=== PATIENT | female | born 1955 | race Caucasian/White ===

== ENCOUNTER 2018-08-10 02:29 | Outpatient (CLI) | payer OTHER, SELFPAY ==
[2018-08-10 07:50] LABS: Hemoglobin A1C 6.1 % (4.5-6.2)
[2018-08-10 08:31] LABS: ALT 26 U/L (12-78); AST 21 U/L (15-37); Albumin 4.1 g/dL (3.4-5.0); Alkaline Phosphatase 61 U/L (46-116); Anion Gap 8.2 mmol/L (3-11); BUN 13 mg/dL (7-18); Bilirubin, Total 0.7 mg/dL (0.2-1.0); CO2 29.8 mmol/L (21.0-32.0); CREATININE 0.81 mg/dL (0.55-1.02); Calcium 10.4 mg/dL (8.5-10.1); Chloride 102 mmol/L (98-107); Cholesterol 197 mg/dL (50-200); Glucose 101 mg/dL (70-100); HDL Cholesterol 62 mg/dL (40-60); LDL CHOLESTEROL 119 mg/dL (<100); Potassium 4.4 mmol/L (3.5-5.1); Sodium 140 mmol/L (136-145); Total Protein 7.5 g/dL (6.4-8.2); Triglyceride 93 mg/dL (30-150)
[2018-08-10 08:35] LABS: COMMENT (LAB VIEW ONLY) 118.44 mg/dL; Microalb ug/mg Crea 4.9 ug/mg Cr
== END 2018-08-10 02:49 ==
PROVIDERS: PCP Family Medicine; Visit Provider Family Medicine
DX: Z00.00 Encounter for general adult medical examination without abnormal findings (principal); E11.9 Type 2 diabetes mellitus without complications
CPT/HCPCS: 36415; 80053; 80061; 83721; 82043; 82570; 83036

== ENCOUNTER 2018-08-21 01:33 | Outpatient (CLI) | payer OTHER, SELFPAY ==
--- NOTE | 2018-08-21 13:00 | DI.MAMMO_ITS ---
SYMPTOMS/DIAGNOSIS: SCREENING, Z12.31 MAMMOGRAM: Mammograms were interpreted according to the usual protocol including computer analysis with CAD system, tomosynthesis and C view imaging. The breasts are of moderate density with fairly symmetrical distribution of fibroglandular tissue. No dominant mass or clumped microcalcification is identified in either breast. Current examination is compared with the previous examinations including July 2017 and there has been no gross interval change in appearance in comparison with the previous studies. CONCLUSION: No specific evidence of malignancy at this time. Routine screening examinations are suggested at yearly intervals in this age group according to the ACS/ACR guidelines. Category 1, breast density category B. MQSA ASSESSMENT OF FINDINGS: Negative. Category 1. Patient will receive a letter notifying them of these results. BI-RADS category B. There are scattered areas of fibroglandular density.
== END 2018-08-21 01:53 ==
PROVIDERS: PCP Family Medicine; Visit Provider Family Medicine
DX: Z12.31 Encounter for screening mammogram for malignant neoplasm of breast (principal)
CPT/HCPCS: 77063; 77067

== ENCOUNTER 2019-02-15 02:40 | Outpatient (CLI) | payer OTHER, SELFPAY ==
[2019-02-15 10:58] LABS: Hemoglobin A1C 6.3 % (4.5-6.2)
== END 2019-02-15 03:00 ==
PROVIDERS: PCP Family Medicine; Visit Provider Family Medicine
DX: E11.9 Type 2 diabetes mellitus without complications (principal)
CPT/HCPCS: 36415; 83036

== ENCOUNTER 2019-08-16 01:53 | Outpatient (CLI) | payer OTHER, SELFPAY ==
[2019-08-16 11:35] LABS: Hemoglobin A1C 6.3 % (4.5-6.2)
[2019-08-16 11:56] LABS: COMMENT (LAB VIEW ONLY) 230.66 mg/dL; Microalb ug/mg Crea 7.9 ug/mg Cr
[2019-08-16 12:57] LABS: ALT 20 U/L (14-59); AST 18 U/L (15-37); Albumin 3.9 g/dL (3.4-5.0); Alkaline Phosphatase 61 U/L (46-116); Anion Gap 10.2 mmol/L (3-11); BUN 12 mg/dL (7-18); Bilirubin, Total 0.9 mg/dL (0.2-1.0); CO2 26.8 mmol/L (21.0-32.0); CREATININE 0.87 mg/dL (0.55-1.02); Calcium 9.6 mg/dL (8.5-10.1); Calculated LDL 118 mg/dL; Chloride 105 mmol/L (98-107); Cholesterol 188 mg/dL (50-200); Glucose 101 mg/dL (70-100); HDL Cholesterol 53 mg/dL (40-60); Potassium 4.3 mmol/L (3.5-5.1); Sodium 142 mmol/L (136-145); Total Protein 7.2 g/dL (6.4-8.2); Triglyceride 88 mg/dL (30-150)
== END 2019-08-16 02:13 ==
PROVIDERS: PCP Family Medicine; Visit Provider Family Medicine
DX: E11.9 Type 2 diabetes mellitus without complications (principal); I10 Essential (primary) hypertension; E78.5 Hyperlipidemia, unspecified
CPT/HCPCS: 36415; 80053; 80061; 82043; 82570; 83036

== ENCOUNTER 2019-11-26 02:01 | Outpatient (CLI) | payer OTHER, SELFPAY ==
--- NOTE | 2019-11-26 12:38 | DI.MAMMO_ITS ---
EXAM: MG MAMMO SCREENING CLINICAL HISTORY: SCREENING TECHNIQUE: Mammograms were interpreted according to the usual protocol including computer analysis w [employer] CAD system, tomosynthesis and C-view imaging. COMPARISON: Current examination is compared with previous examinations including August 2018 FINDINGS: The breasts are of moderate density with fairly symmetrical distribution of fibroglandular tissue. N o dominant mass or clumped microcalcification is identified in either breast. Current examination is compared with previous examinations including August 2018 and there has been no gross interval sam nge in appearance in comparison with the previous studies. IMPRESSION: No specific evidence of malignancy at this time. Routine screening examinations are suggested at yea rly intervals in this age group according to the ACS/ACR guidelines. Category 1, breast density claudio Talavera. BI-RADS Cat 1 - Negative Breast Density - Category B - Scattered areas of fibroglandular density
== END 2019-11-26 02:21 ==
PROVIDERS: PCP Family Medicine; Visit Provider Obstetrics & Gynecology Gynecology
DX: Z12.31 Encounter for screening mammogram for malignant neoplasm of breast (principal)
CPT/HCPCS: 77063; 77067

== ENCOUNTER 2020-02-26 03:04 | Outpatient (CLI) | payer MEDICARE, SELFPAY | END 2020-02-26 03:24 | PROVIDERS: PCP Family Medicine; Visit Provider Family Medicine | DX: E11.9 Type 2 diabetes mellitus without complications (principal) | CPT/HCPCS: 36415; 83036 ==

== ENCOUNTER → 2020-08-14 08:32 | Outpatient (BNVA) | payer MEDICARE, OTHER, SELFPAY | PROVIDERS: PCP Family Medicine; Referring Provider Family Medicine; Visit Provider Surgery | DX: Z12.11 Encounter for screening for malignant neoplasm of colon (principal); Z12.12 Encounter for screening for malignant neoplasm of rectum; Z11.59 Encounter for screening for other viral diseases ==

== ENCOUNTER 2020-08-19 04:23 | Outpatient (CLI) | payer MEDICARE, SELFPAY ==
[2020-08-19 13:20] LABS: ALT 21 U/L (14-59); AST 17 U/L (15-37); Albumin 4.1 g/dL (3.4-5.0); Alkaline Phosphatase 58 U/L (46-116); Anion Gap 8.5 mmol/L (3-11); BUN 9 mg/dL (7-18); Bilirubin, Total 0.8 mg/dL (0.2-1.0); CO2 28.5 mmol/L (21.0-32.0); CREATININE 0.85 mg/dL (0.55-1.02); Calcium 10.2 mg/dL (8.5-10.1); Chloride 105 mmol/L (98-107); Glucose 98 mg/dL (74-106); Potassium 4.4 mmol/L (3.5-5.1); Sodium 142 mmol/L (136-145); Total Protein 7.3 g/dL (6.4-8.2)
[2020-08-19 13:34] LABS: Hemoglobin A1C 6.1 % (<5.7)
[2020-08-19 13:52] LABS: COMMENT (LAB VIEW ONLY) 196.78 mg/dL; Microalb ug/mg Crea 5.9 ug/mg Cr
== END 2020-08-19 04:43 ==
PROVIDERS: PCP Family Medicine; Visit Provider Family Medicine
DX: E11.9 Type 2 diabetes mellitus without complications (principal); E78.5 Hyperlipidemia, unspecified
CPT/HCPCS: 36415; 80053; 82043; 82570; 83036

== ENCOUNTER 2020-08-26 02:04 | Outpatient (CLI) | payer MEDICARE, SELFPAY ==
[2020-08-27 15:13] LABS: SARS-CoV-2 RNA Not Detected (NotDetected); SARS-CoV-2 RNA Source Nasal/Nares
== END 2020-08-26 02:24 ==
PROVIDERS: PCP Family Medicine; Visit Provider Surgery
DX: Z11.59 Encounter for screening for other viral diseases (principal); Z01.818 Encounter for other preprocedural examination
CPT/HCPCS: U0003

== ENCOUNTER 2020-08-31 06:13 | Day surgery (SDC) | payer MEDICARE, SELFPAY ==
[2020-08-31 06:15] VITALS: BP 114/80; PULSE 75; RESP 18; TEMP 36.4; O2SAT 94
[2020-08-31] MEDS: Lactated Ringers 1,000 ML 80 ML IV (06:35)
--- NOTE | 2020-08-31 06:46 | W.COLOREPORT ---
Date of service: 08/31/20 Time of Service: 07:30 Colonoscopy Report Date of procedure: 08/31/20 Pre-op diagnosis general: Colon Cancer Screening and history of polyps Post-op diagnosis procedure note: other (multiple small pollyps) Procedure: Colonoscopy with polypectomy Surgeon: Radha Armas Anesthesia proc note operative: other (General/ ASA 2/Juan Jackson, AMY) Estimated blood loss (mL): 5 Pathology: other (cecal polyp, sigmoid polyps x5, rectal polyps x6) Complications: None Disposition: no change Indications: Darby is here to discuss a screening colonoscopy. She has had no changes in bowel habits, melena, hematochezia, abdominal pain or unintentional weight loss. Colonoscopy procedure and complications reviewed. COVID testing explained as well as reasoning. Reviewed quarantine requirements after testing Prep: Miralax/Dulcolax Procedure Start Time: 07:30 Procedure End Time: 08:15 Retraction Time: 27 minutes Findings: multiple small sessile polyps Procedure Description: After informed consent was obtained the patient was taken to the procedure room and placed in a left decubitous position. Monitors were applied and a time out was done. The patients name, date of , procedure, allergies to medications and metal in their body was reviewed. The patient was then sedated. Once sedated and comfortable a rectal exam was done. External exam was normal. Internal exam revealed a normal sphincter tone and no palpable masses. The scope was then introduced and retro-flexed. No internal hemorrhoids were identified. The scope was then advanced to the cecum without difficulty. The ileocecal valve and appendiceal orifice were identified. The prep was good. The scope was then slowly retracted over 27 minutes back into the rectum. Polyps were removed with cold forceps in the cecum x1, sigmoid colon x5 and rectum x6. There were no diverticula noted. The scope was removed and the patient was woken up and taken back to Same day surgery in stable condition. The patient tolerated the procedure well and there were no immediate complications. Follow up: The patient should follow up in 3-5 years unless they develop changes in bowel habits or other new gastrointestinal complaints.
--- NOTE | 2020-08-31 06:47 | W.PM.DSUDISC ---
Discharge Plan Disposition Patient Disposition: HOME Condition: Good Discharge Details Reason For Visit: colon cancer screening Attending Provider: Radha Armas Primary Care Provider: Milly Carvajal Home Meds and New Rx's Prescriptions: Continued simvastatin [Zocor] 20 mg tablet See Rx Instructions PO HS Qty: 45 RF: 4 aspirin [Aspirin Low-Strength] 81 MG tablet,chewable 1 tab.chew PO DAILY RF: 0 cholecalciferol (vitamin D3) 1,000 UNIT tablet 2 tab PO THREE TIMES A WEEK RF: 0 omega-3 fatty acids-fish oil 1 EACH capsule 1 cap PO DAILY RF: 0 calcium carbonate-vitamin D3 [Caltrate with Vitamin D3] 1 EACH tablet 1 tab PO DAILY RF: 0 acetaminophen [Tylenol Extra Strength] 500 MG tablet 1,000 mg PO BID PRNRF: 0 ibuprofen 200 MG tablet 3 - 4 tab PO Q6H PRN RF: 0 Discharge Instructions Instructions: Colorectal Polyps (DC) Additional Instructions: Findings: small polyps x13 Follow up: ? 3 -5 years Please call if you develop: fevers >101.5 Nausea or Vomiting Abdominal pain that is not transient DAY SURGERY UNIT POST ENDOSCOPY INSTRUCTIONS 1. Because there will be medication in your system for the next 24 hours, you may feel a little sleepy. Your coordination will be affected. Therefore: a. Do not drive or operate dangerous equipment for 24 hours. b. Do not drink alcohol beverages for 24 hours (not even beer). c. Plan to go home and rest for the day. 2. Generally there are no restrictions on your activity after a day or so has gone by, but you may feel a bit fatigued for a few days. 3 After you arrive home you may have a light meal and return to a normal diet as you can tolerate it without feeling sick to your stomach. 4. After surgery, you may feel pain or discomfort. This should be only transient, but if it persists please contact your doctor. 5. If there are any questions regarding the findings of your procedure, please feel free to contact your doctor. 6. If you are unable to contact your doctor with a problem, contact the hospital at [phone]. 7. Continue all your regular medications unless directed otherwise. I understand the above instructions and have no questions. Signature of Patient or Responsible Adult Escort Date/Time Name of Responsible Adult Escort Signature of Nurse Date/Time Activity:: Activity as Tolerated Diet:: As Tolerated Discharge Orders Discharge Orders: Discharge Order (Routine); Ordered 08/31/20 Ordered By: Radha Armas
--- NOTE | 2020-08-31 07:33 | BOWEL_PTH ---
PATIENT: Janeen Dias LOC: [facility] U#:[id number] AGE/SX: 65/F ROOM: RE08/31/[address]: Radha Armas MD : 1955 BED: DIS: 08/31/2020 SPEC #: [id number] RECD: 08/31/20 12:35 STATUS: KARELY RE #: [id number] GIO: 08/31/20 07:[address]: Radha Armas DEPT: Surgical Specimen RECD BY: Carly Hughes ENTERED: 08/31/20 12:37 SP TYPE: Bowel OTHR DR: Milly Carvajal MD, DC Tissues: 1 - BIOPSY BOWEL 2 - BIOPSY BOWEL 3 - BIOPSY BOWEL 4 - BIOPSY BOWEL Procedures: GROSS AND MICRO LEVEL 4 Comments: [id number]
[2020-08-31 08:50] VITALS: BP 117/54; PULSE 55; RESP 18; TEMP 36.4; O2SAT 97
== END 2020-08-31 09:07 | disposition home or self-care (01) ==
PROVIDERS: PCP Family Medicine; Visit Provider Surgery
PROC: 0DJD8ZZ Inspection of Lower Intestinal Tract, Via Natural or Artificial Opening Endoscopic (ICD-10-PCS; CPT 45378; principal; 2020-08-31 07:30)
DX: Z12.11 Encounter for screening for malignant neoplasm of colon (principal); K62.1 Rectal polyp; Z86.010 Personal history of colon polyps; I10 Essential (primary) hypertension; E11.9 Type 2 diabetes mellitus without complications; E66.9 Obesity, unspecified; D12.0 Benign neoplasm of cecum
CPT/HCPCS: 45380; 88305; J2001

== ENCOUNTER 2020-12-22 10:46 | Outpatient (REF) | payer MEDICARE, SELFPAY ==
--- NOTE | 2020-12-22 10:30 | PAPFT_PTH ---
PATIENT: Janeen Dias LOC: [facility] U#:[id number] AGE/SX: 65/F ROOM: RE12/22/[address]: Maggy Dixon : 1955 BED: DIS: 12/22/2020 SPEC #: [id number] RECD: 12/22/20 12:24 STATUS: KARELY REMeño #: [id number] GIO: 12/22/20 10:[address]: Maggy Dixon DEPT: [facility] Cytology RECD BY: Carly Hughes ENTERED: 12/22/20 12:25 SP TYPE: PAPFT OTHR DR: Milly Carvajal MD, DC Tissues: 1 - CX/ENDOCX FOR PAP SMEARS Procedures: PAP THIN PREP/UVM Screening HPV DNA PROBE Comments: [id number]
== END 2020-12-22 10:47 | disposition home or self-care (01) ==
LOC: LBN 10:46
PROVIDERS: PCP Family Medicine; Visit Provider Obstetrics & Gynecology Gynecology
DX: Z12.4 Encounter for screening for malignant neoplasm of cervix (principal); Z11.51 Encounter for screening for human papillomavirus (HPV)
CPT/HCPCS: 88142; 87624

== ENCOUNTER 2021-02-15 02:26 | Outpatient (CLI) | payer MEDICARE, SELFPAY ==
--- NOTE | 2021-02-15 07:30 | DI.MAMMO_ITS ---
Exam(s) MAMMO SCREENING EXAM: MAMMO SCREENING CLINICAL HISTORY: screening,Z12.39. TECHNIQUE: Bilateral full field digital CC and MLO mammographic images were obtained with 3D tomosyn thesis and utilizing computer aided detection (CAD). COMPARISON: Prior mammograms dating back to 2011, the most recent being November 2019. FINDINGS: Small microcalcification group lateral of center in the left breast located 8 cm in from the nipple i s unchanged from prior studies. There are no new spiculated masses nor new malignant appearing microcalcification groups. There is no significant architectural distortion nor skin thickening-retraction. IMPRESSION: No radiographic evidence of malignancy. Stable benign findings. BI-RADS Category 2 - Benign Findings Breast Density - Category B - Scattered areas of fibroglandular density Breast density Category C or D implies that the patient has dense breast tissue. Dense breast tissue can make it harder to find cancer on a mammogram. Dense breast tissue is also associated with an incr eased risk of breast cancer. This information about the result of the mammogram report was provided to the patient to raise their awareness. Use this report when you speak with the patient about their risks for breast cancer, which includes their family history. At that time, you may recommend additional screening tests (Ultrasoun d or MRI) as these tests may add significant information. A negative radiographic report should not delay biopsy if a dominant or clinically suspicious mass is present. Up to ten percent of cancers are not identified on mammography. A negative report may reinforce clinical impression. Adenosis and dense breasts may obscure an underlying neoplasm. False positive reports average 6 to 10%. Patient will receive a letter notifying them of these results.
== END 2021-02-15 02:46 ==
PROVIDERS: PCP Family Medicine; Visit Provider Obstetrics & Gynecology Gynecology
DX: Z12.31 Encounter for screening mammogram for malignant neoplasm of breast (principal)
CPT/HCPCS: 77063; 77067

== ENCOUNTER 2021-02-19 01:19 | Outpatient (CLI) | payer MEDICARE, SELFPAY ==
[2021-02-19 12:39] LABS: Hemoglobin A1C 6.1 % (<5.7)
[2021-02-19 13:03] LABS: ALT 27 U/L (14-59); AST 18 U/L (15-37); Albumin 4.4 g/dL (3.4-5.0); Alkaline Phosphatase 67 U/L (46-116); BUN 14 mg/dL (7-18); Bilirubin, Total 0.8 mg/dL (0.2-1.0); CREATININE 0.9 mg/dL (0.55-1.02); Calcium 9.9 mg/dL (8.5-10.1); Calculated LDL 104 mg/dL (<100); Chloride 104 mmol/L (98-107); Cholesterol 187 mg/dL (<200); Glucose 124 mg/dL (74-106); HDL Cholesterol 67 mg/dL (40-60); Potassium 4.3 mmol/L (3.5-5.1); Sodium 142 mmol/L (136-145); Total Protein 7.9 g/dL (6.4-8.2); Triglyceride 82 mg/dL (<150)
[2021-02-19 13:37] LABS: Microalb ug/mg Crea 7.4 ug/mg Cr
== END 2021-02-19 01:20 | disposition home or self-care (01) ==
LOC: LOS 01:19
PROVIDERS: PCP Family Medicine; Visit Provider Family Medicine
DX: E11.9 Type 2 diabetes mellitus without complications (principal); E78.5 Hyperlipidemia, unspecified
CPT/HCPCS: 36415; 80053; 80061; 82043; 82570; 83036

== ENCOUNTER 2021-09-23 03:15 | Outpatient (CLI) | payer MEDICARE, SELFPAY ==
[2021-09-23 09:46] LABS: Hemoglobin A1C 6.2 % (<5.7)
[2021-09-23 09:53] LABS: ALT 30 U/L (14-59); AST 19 U/L (15-37); Alkaline Phosphatase 59 U/L (46-116); Anion Gap 7.9 mmol/L (3-11); BUN 11 mg/dL (7-18); Bilirubin, Total 0.7 mg/dL (0.2-1.0); CO2 29.1 mmol/L (21.0-32.0); CREATININE 0.7 mg/dL (0.55-1.02); Calcium 9.6 mg/dL (8.5-10.1); Chloride 106 mmol/L (98-107); Glucose 103 mg/dL (74-106); Potassium 4.5 mmol/L (3.5-5.1); Sodium 143 mmol/L (136-145); Total Protein 7.2 g/dL (6.4-8.2)
== END 2021-09-23 03:16 | disposition home or self-care (01) ==
LOC: LBO 03:15
PROVIDERS: PCP Family Medicine; Visit Provider Family Medicine
DX: I10 Essential (primary) hypertension (principal); E11.9 Type 2 diabetes mellitus without complications; E78.5 Hyperlipidemia, unspecified
CPT/HCPCS: 36415; 80053; 83036

== ENCOUNTER 2021-10-22 01:12 | Outpatient (CLI) | payer MEDICARE, SELFPAY ==
--- NOTE | 2021-10-22 08:00 | DI.DEXA_ITS ---
Exam(s) XR DEXA BONE DENSITY W/WO SU EXAM: XR DEXA BONE DENSITY W/WO SU CLINICAL HISTORY: osteoporosis,M81.0 TECHNIQUE: Wantr C densitometer COMPARISON: 2002and 2007 FINDINGS: Lateral view of the thoracic and lumbar spine shows no evidence of compression fractures. Bone mineral density measurements of the lumbar spine correspond to a total T-score of -0.9, in the normal range. This represents an 8.4 percent decrease from 2007 and 10.9 percent decrease compared t o 2002. Bone mineral density measurements of the left hip correspond to a total T-score of -0.3. The femora l neck T-score is -0.8, in the normal range. This represents a 6.7 percent decrease from 2007 and a 6.5 percent decrease from 2002. . The left forearm bone mineral density measurements correspond to a T-score of the distal 3rd of -1.9, in the osteopenic range. The forearm was not analyzed on the previous exams. . IMPRESSION: Osteopenia of the left forearm. Normal bone mineral density of left hip and lumbar spine.
== END 2021-10-22 01:32 ==
PROVIDERS: PCP Family Medicine; Visit Provider Family Medicine
DX: M81.0 Age-related osteoporosis without current pathological fracture (principal); M85.88 Other specified disorders of bone density and structure, other site
CPT/HCPCS: 77080

== ENCOUNTER 2022-03-25 01:12 | Outpatient (CLI) | payer MEDICARE, SELFPAY ==
--- OUTSIDE RECORDS SUMMARY | 2022-03-25 01:15 | XMS_ITS | Encounter Summary ---
:[address] [facility] Address [address] [place] [address] Care Team Providers Name Role Phone Milly Carvajal MD Primary Care Provider Encounter Details Date Type Department Care Team Description 01/22/2018 Hospital Encounter [facility] Unknown, Provider, [facility] [address] [facility] [phone] [place] [address] (Work) [phone] Social History Tobacco Use Types Packs/Day Years Used Date Never Assessed Sex Assigned at Date Recorded Not on file documented as of this encounter Discharge Disposition Disposition Code Departure Means Destination Home or Self Senior Living documented in this encounter Plan of Treatment Not on filedocumented as of this encounter Visit Diagnoses Not on filedocumented in this encounter 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
--- OUTSIDE RECORDS SUMMARY | 2022-03-25 01:15 | XMS_ITS | Encounter Summary ---
:1955 Author Organization [facility] Address [address] [place] [address] Care Team Providers Name Role Phone Milly Carvajal MD Primary Care Provider Encounter Details Date Type Department Care Team Description 08/31/2020 Lab Requisition [facility] Molly Armas for other Pathology & MD Alexander general examination Laboratory Medicine [address] [place], [place] [address] [facility] [id number] [place] [id number] Social History Tobacco Use Types Packs/Day Years Used Date Never Assessed Sex Assigned at Date Recorded Not on file documented as of this encounter Plan of Treatment Not on filedocumented as of this encounter Procedures Procedure Name Priority Date/Time Associated Diagnosis Comme nts SURGICAL PATHOLOGY Today 08/31/2020 7:33 EST Encounter for o ther Results for this general examination procedur e are in the results section. documented in this encounter Results SURGICAL PATHOLOGY (08/31/2020 7:33 EST) Final Diagnosis A. COLON, SIGMOID, POLYPS, BIOPSY: [facility] - Hyperplastic polyps. [facility] B. COLON, CECUM, POLYP, BIOPSY: SERVICES - Tubular adenoma. C. RECTUM, POLYPS BIOPSY: - Hyperplastic polyps. D. RECTUM, POLYP, BIOPSY: - Hyperplastic polyp. Attestation There was significant [facility] Electr onically resident/fellow CENTER signed by Ab papo Evangelista involvement in the LABORATORY Archie Vargas on diagnostic evaluation SERVICES 020 at 1225 of this case. By the signature below, the attending physician certifies that they have personally conducted a gross and/or microscopic examination of the described specimens and rendered or confirmed the above diagnosis. Clinical History Colorectal screening [facility] Gross Description A. [facility] MEDICAL Received in formalin narcisa d with proper patient identification (initials S, A) and sigmoid polyps x5 are 5 fragments of price soft tissue (ranging from 0.2 cm to 0.6 cm in greatest dimension). The specimen is entirely submitted in A1-A2. [facility] B. SERVICES Received in formalin narcisa d with proper patient identification (initials S, A) and cecal polyp are 2 fragments of price soft tissue (0.2 x 0.2 x 0.2 cm and 0.4 x 0.4 x 0.2 cm). The specimen is entirely submitted in B1. C. Received in formalin narcisa d with proper patient identification (initials S, A) and rectal polyps x6 are 3 fragments of pink-price soft tissue (ranging from 0.2 cm to 0.4 cm in greatest dimension). The specimen is entirely submitted in C1. D. Received in formalin narcisa d with proper patient identification (initials S, A) and rectal polyp are 2 fragments of pink-price soft tissue (each averaging 0.2 x 0.2 x 0.2 cm). The specimen is entirely submitted in D1. BIANCA LEMUS([facility]) 08/31/2020 17:03 Resident/Fellow: Anthony Chiu MD [facility] Performing Lab [facility] Scanned Images [facility] Specimen Tissue - Specimen from rectum (specimen) Tissue specimen (specimen) - Cecum struc ture (body structure) Tissue specimen (specimen) - Specimen fr om rectum (specimen) Tissue specimen (specimen) - Specimen fr om rectum (specimen) Performing Organization Address City/State/ZIP Code Phon e Number [facility] [address] [place] [address] SERVICES documented in this encounter Visit Diagnoses Diagnosis Encounter for other general examination documented in this encounter Care Teams Computer Field Technician Relationship Specialty Start Date End Date Milly Carvajal MD PCP - General 06/26/15 [address] [place], [place] [phone] documented as of this encounter
--- OUTSIDE RECORDS SUMMARY | 2022-03-25 01:15 | XMS_ITS | Encounter Summary ---
:1955 Author Organization [facility] Address [address] [place] [address] Care Team Providers Name Role Phone Unavailable Primary Care Provider Unavailable Encounter Details Date Type Department Care Team Description 06/13/2008 Before PRISM Converted [facility] - Danisha Samuels, Visit (Milana) Milana max MD [address] [place] [address] Social History Tobacco Use Types Packs/Day Years Used Date Never Assessed Sex Assigned at Date Recorded Not on file documented as of this encounter Plan of Treatment Not on filedocumented as of this encounter Procedures Procedure Name Priority Date/Time Associated Diagnosis Comme nts CYTOPATHOLOGY Routine 06/13/2008 0:00 EDT Results for this procedure are i n the results section . documented in this encounter Results CYTOPATHOLOGY (06/13/2008 0:00 EDT) Pathology Report: CYTOPATHOLOGY REPORT ? [facility] ? LAB Reports generated via electr [employer] Social interface contain original data; ? however they are lacking the format of the original report. ? Caution should be taken when reading/interpreting unformatted reports. ? Name: ? JANEEN DIAS ? Accession #: ? [id number] ? : ? 1955 (Age: 53) ??F ?Collect Date: ? 06/13/2008 ? Location: ? [facility] ? Receive Date: ? 06/16/2008 ? Provider: ?JENNYFER BELL IER MD ? Copy to: ? Specimen/Source: ? ThinPrep Pap Test, Cervix/Endocervix, processed on [employer] ThinPrep Imaging System, wit h manual evaluation ? Last Menstrual Period: ? 12/01 ? Other: ? Additional clinical informat ion: Nl exam ? SPECIMEN ADEQUACY ? Satisfactory for Eval uation ? - transformation zone compon ent present ? GENERAL CATEGORIZATION ? Negative for Intraepi thelial Lesion or Malignancy ? Document reviewed and electr onically signed by: ? Starr [place](ASCP) ? Report Date: ??09/17/ 2008 13:48 ? End of Report ? Specimen Performing Organization Address City/State/[facility] Code Phon e Number [facility] [address] [place] [address] SERVICES [facility] [address] [place] [address] documented in this encounter Visit Diagnoses Not on filedocumented in this encounter
--- OUTSIDE RECORDS SUMMARY | 2022-03-25 01:15 | XMS_ITS | Encounter Summary ---
:1955 Author Organization [facility] Address [address] [place] [address] Care Team Providers Name Role Phone Unavailable Primary Care Provider Unavailable Encounter Details Date Type Department Care Team Description 06/23/2015 Results Only [facility] Nancy Wallace, [address] [place], [place] [phone] (Wo rk) Social History Tobacco Use Types Packs/Day Years Used Date Never Assessed Sex Assigned at Date Recorded Not on file documented as of this encounter Plan of Treatment Not on filedocumented as of this encounter Procedures Procedure Name Priority Date/Time Associated Diagnosis Comme [facility] SURGICAL PATHOLOGY Routine 06/23/2015 10:04 Resul ts for this EDT procedure are i n the results section. documented in this encounter Results SURGICAL PATHOLOGY (06/23/2015 10:04 EDT) Pathology Report: SURGICAL PATHOLOGY REPORT [facility] Reports generated via electronic interface contain franki ginal data; LABORATORY however they are lacking the format of the original re port. SERVICES Caution should be taken when reading/interpreting unfo rmatted reports. Name: ? JANEEN DIAS ? Accession #: ? [id number] ? : ? 1955 (Age: 6 0) ??F ? Collect Date: ? 06/23/2015 ? Location: ? [facility] ? Receive Date: ? 06/24/20 15 ? Provider: NANCY WALLACE MD Copy to: ANIYAH CHACON MD ? Final Pathologic Diagnosis: COLON, SIGMOID, POLYPS, BIOPSY: - ??Colonic mucosa (2) with prominent lymphoid aggregate and surface epithelial hyperplastic change. - ??No adenoma. Document reviewed and electronically signed by: Tyler Connelly MD Report ??Date: 06/25/2015 13:17 By the signature above, the attending physician certif ies that he/she has personally conducted a gross and/or microscopic examin ation of the described specimens and rendered or confirmed the above diagnosi s. Specimen(s) Received: Sigmoid polyp x2 Clinical History: Screening Gross Description: ? Received in formalin labelled with proper patient identification (initials S, A) and sigmoid polyp x2 are two pink-price tissues (each 0.3 x 0.1 x 0.1 cm). Entirely submitted in 1. Eleazar Kearney 06/24/2015 11:04 AM End of Report Specimen Performing Organization Address City/State/ZIP Code Phon e Number [facility] [address] [place] [address] SERVICES documented in this encounter Visit Diagnoses Not on filedocumented in this encounter
--- OUTSIDE RECORDS SUMMARY | 2022-03-25 01:15 | XMS_ITS | Encounter Summary ---
:[address] [facility] Address [address] [place] [address] Care Team Providers Name Role Phone Unavailable Primary Care Provider Unavailable Encounter Details Date Type Department Care Team Description 05/07/2007 Results Only [facility] - Braulio Bonilla MD conversion [address] [place] [address] Social History Tobacco Use Types Packs/Day Years Used Date Never Assessed Sex Assigned at Date Recorded Not on file documented as of this encounter Plan of Treatment Not on filedocumented as of this encounter Procedures Procedure Name Priority Date/Time Associated Diagnosis Comme nts CYTOPATHOLOGY Routine 05/07/2007 0:00 EDT Results for this procedure are i n the results section . documented in this encounter Results CYTOPATHOLOGY (05/07/2007 0:00 EDT) Pathology Report: CYTOPATHOLOGY REPORT [facility] Reports generated via electronic interface contain franki ginal data; however they are lacking the format of the original re port. Caution should be taken when reading/interpreting unfo rmatted reports. Name: ? JANEEN DIAS ? Accession #: ? [id number] : ? 1955 (Age: 52) ??F ?Collect Date: ? 03/2007 Location: ? [facility] ? Receive Date : ? 05/08/2007 Provider: ?BRAULIO DAIGLE MD Copy to: ? Specimen/Source: ? ThinPrep Pap Test, Cervix/Endocervix, processed on [employer] ThinPrep Imaging System, with manual evaluation Last Menstrual Period: ? 09/05 ? SPECIMEN ADEQUACY ? Satisfactory for Evaluation - transformation zone component present GENERAL CATEGORIZATION ? Negative for Intraepithelial Lesion or Malignan cy ? Document reviewed and electronically signed by: ? HONEY Obando(ASCP) ? Report Date: ??05/10/2007 11:19 End of Report Specimen Performing Organization Address City/State/ZIP Code Phon e Number [facility] [address] [place] [address] SERVICES [facility] [address] [place] [address] documented in this encounter Visit Diagnoses Not on filedocumented in this encounter
--- OUTSIDE RECORDS SUMMARY | 2022-03-25 01:15 | XMS_ITS | Encounter Summary ---
:1955 Author Organization [facility] Address [address] [place] [address] Care Team Providers Name Role Phone Unavailable Primary Care Provider Unavailable Encounter Details Date Type Department Care Team Description 04/24/2006 Results Only [facility] - Braulio Bonilla MD conversion [address] [place] [address] Social History Tobacco Use Types Packs/Day Years Used Date Never Assessed Sex Assigned at Date Recorded Not on file documented as of this encounter Plan of Treatment Not on filedocumented as of this encounter Procedures Procedure Name Priority Date/Time Associated Diagnosis Comme nts CYTOPATHOLOGY Routine 04/24/2006 0:00 EDT Results for this procedure are i n the results section . documented in this encounter Results CYTOPATHOLOGY (04/24/2006 0:00 EDT) Pathology Report: CYTOPATHOLOGY REPORT [facility] Reports generated via electronic interface contain franki ginal data; however they are lacking the format of the original re port. Caution should be taken when reading/interpreting unfo rmatted reports. Name: ? JANEEN DIAS ? Accession #: ? [id number] : ? 1955 (Age: 51) ??F ?Collect Date: ? 04/02 Location: ? [facility] ? Receive Date : ? 04/25/2006 Provider: ?BRAULIO DAIGLE MD Copy to: ? Specimen/Source: ? ThinPrep Pap Test, Cervix/Endocervix, processed on Infochimps ThinPrep Imaging System, with manual evaluation Last Menstrual Period: ? 09/01 ? SPECIMEN ADEQUACY ? Satisfactory for Evaluation - transformation zone component present GENERAL CATEGORIZATION ? Negative for Intraepithelial Lesion or Malignan cy ? Document reviewed and electronically signed by: ? QUYNH Bravo(ASCP) ? Report Date: ??04/27/2006 07:15 End of Report Specimen Performing Organization Address City/State/ZIP Code Phon e Number [facility] [address] [place] [address] SERVICES [facility] [address] [place] [address] documented in this encounter Visit Diagnoses Not on filedocumented in this encounter
--- OUTSIDE RECORDS SUMMARY | 2022-03-25 01:15 | XMS_ITS | Encounter Summary ---
:1955 Author Organization [facility] Address [address] [place] [address] Care Team Providers Name Role Phone Unavailable Primary Care Provider Unavailable Encounter Details Date Type Department Care Team Description 03/16/2000 Results Only [facility] - Braulio Bonilla MD conversion [address] [place] [address] Social History Tobacco Use Types Packs/Day Years Used Date Never Assessed Sex Assigned at Date Recorded Not on file documented as of this encounter Plan of Treatment Not on filedocumented as of this encounter Procedures Procedure Name Priority Date/Time Associated Diagnosis Comme nts CYTOPATHOLOGY Routine 03/16/2000 0:00 EDT Results for this procedure are i n the results section . documented in this encounter Results CYTOPATHOLOGY (03/16/2000 0:00 EDT) Pathology Report: CYTOPATHOLOGY REPORT [facility] Reports generated via electronic interface contain franki ginal data; however they are lacking the format of the original re port. Caution should be taken when reading/interpreting unfo rmatted reports. Name: ? JANEEN DIAS ? Accession #: ? [id number] : ? 1955 (Age: 45) ??F ?Collect Date: ? 03/02 Location: ? [facility] ? Receive Date : ? 03/20/2000 Provider: ?BRAULIO DAIGLE MD Copy to: ? Specimen/Source: ?ThinPrep Pap Test, Cervix/ Endocervix Last Menstrual Period: ? 12/26/99 Menstrual/ Status: ? Amenorrhea ? SPECIMEN ADEQUACY ? Satisfactory for evaluation. GENERAL CATEGORIZATION ? Within Normal Limits ? Document reviewed and electronically signed by: ? QUYNH Cotton(ASCP) ? Report Date: ??03/21/2000 10:51 End of Report Specimen Performing Organization Address City/State/ZIP Code Phon e Number [facility] [address] [place] [phone] SERVICES [facility] [address] [place] [address] documented in this encounter Visit Diagnoses Not on filedocumented in this encounter
--- OUTSIDE RECORDS SUMMARY | 2022-03-25 01:15 | XMS_ITS | Encounter Summary ---
:1955 Author Organization [facility] Address [address] [place] [address] Care Team Providers Name Role Phone Milly Carvajal MD Primary Care Provider Encounter Details Date Type Department Care Team Description 12/23/[address] [facility] Maggy Ko, En counter for other Pathology & MD general examination Laboratory Medicine [address] [place] [address] Social History Tobacco Use Types Packs/Day Years Used Date Never Assessed Sex Assigned at Date Recorded Not on file documented as of this encounter Plan of Treatment Not on filedocumented as of this encounter Procedures Procedure Name Priority Date/Time Associated Comments Diagnosis PAP TEST Today 12/22/2020 10:30 Encounter for other Resu lts for this EDT general examination procedur e are in the results section. HUMAN PAPILLOMAVIRUS Today 12/22/2020 10:30 Encounter for ot her Results for this (HPV) DETECTION-HIGH EDT general examination procedure are in RISK TYPES the results section. documented in this encounter Results HUMAN PAPILLOMAVIRUS (HPV) DETECTION-HIGH RISK TYPES (12/22/2020 10:30 EDT) Human Papillomavirus NegativeComment: No Negative UV MEDICAL (HPV) Detection-High E6 or E7 mRNA is CENTER LABORATOR Y Types detected from HPV SERVICES types 16,18,31,33,35,39,45 ,51,52,56,58,59,66, and 68 by feed and farm management adviser mediated amplification. Specimen Pap Test - Cervix and/or Endocervix Performing Organization Address City/State/ZIP Code Phon e Number [facility] [address] [place] [address] SERVICES PAP TEST (12/22/2020 10:30 EDT) Specimens A. Cervix and/or [facility] MEDICAL Endocervix , ThinPrep CENTER Imaging System with LABORATORY Manual Evaluation SERVICES Specimen Adequacy Satisfactory for [facility] MEDICAL Evaluation - CENTER transformation zone LABORATORY component present SERVICES General Negative for [facility] intraepithelial [place] lesion or malignancy LABORATORY SERVICES Attestation . [facility] signed by Kasia santillan, LABORATORY QUYNH Pierce( CP) SERVICES on 01/01/2021 at 1519 Clinical History See below [facility] SERVICES HPV The result for the Human Pap illomavirus (HPV) Detection-High Risk Types is Negative. No E6 or E7 mRNA is detected from HPV types 16,18,31,33,35,39,45,51,52,56,58,59,66, and 68 by feed and farm management adviser mediated [facility] MEDICAL amplification.Testing was pe rformed on specimen [id number] and was resulted on 01/01/2021 1513 EDT by PIYUSH, LAB INSTRUMENT RESULTS IN [facility] SERVICES Performing Lab [facility] SERVICES Scanned Images [facility] SERVICES Specimen Pap Test - Cervix and/or Endocervix Performing Organization Address City/State/ZIP Code Phon e Number [facility] [address] [place] [address] SERVICES documented in this encounter Visit Diagnoses Diagnosis Encounter for other general examination documented in this encounter Care Teams Marketing Instructor Relationship Specialty Start Date End Date Milly Carvajal MD PCP - General 06/26/15 [address] [place], [place] [address] documented as of this encounter
--- OUTSIDE RECORDS SUMMARY | 2022-03-25 01:15 | XMS_ITS | Encounter Summary ---
:1955 Author Organization [facility] Address [address] [place] [address] Care Team Providers Name Role Phone Unavailable Primary Care Provider Unavailable Encounter Details Date Type Department Care Team Description 03/31/2003 Results Only [facility] - Braulio Bonilla MD conversion [address] [place] [address] Social History Tobacco Use Types Packs/Day Years Used Date Never Assessed Sex Assigned at Date Recorded Not on file documented as of this encounter Plan of Treatment Not on filedocumented as of this encounter Procedures Procedure Name Priority Date/Time Associated Diagnosis Comme nts CYTOPATHOLOGY Routine 03/31/2003 0:00 EDT Results for this procedure are i n the results section . documented in this encounter Results CYTOPATHOLOGY (03/31/2003 0:00 EDT) Pathology Report: CYTOPATHOLOGY REPORT [facility] Reports generated via electronic interface contain franki ginal data; however they are lacking the format of the original re port. Caution should be taken when reading/interpreting unfo rmatted reports. Name: ? JANEEN DIAS ? Accession #: ? [id number] : ? 1955 (Age: 48) ??F ?Collect Date: ? 03/04 Location: ? [facility] ? Receive Date : ? 04/02/2003 Provider: ?BRAULIO DAIGLE MD Copy to: ? Specimen/Source: ?ThinPrep Pap Test, Cervix/ Endocervix Last Menstrual Period: ? 09/01 Other: ? Additional clinical information: No periods ? SPECIMEN ADEQUACY ? Satisfactory for Evaluation - transformation zone component present GENERAL CATEGORIZATION ? Negative for Intraepithelial Lesion or Malignan cy ? Document reviewed and electronically signed by: ? QUYNH John(ASCP) ? Report Date: ??04/08/2003 08:00 End of Report Specimen Performing Organization Address City/State/ZIP Code Phon e Number [facility] [address] [place] [address] SERVICES [facility] [address] [place] [address] documented in this encounter Visit Diagnoses Not on filedocumented in this encounter
--- OUTSIDE RECORDS SUMMARY | 2022-03-25 01:15 | XMS_ITS | Clinical Summary ---
:1955 Author Organization [facility] Address [address] [place] [address] Care Team Providers Name Role Phone Milly Carvajal MD Primary Care Provider Social History Tobacco Use Types Packs/Day Years Used Date Never Assessed Sex Assigned at Date Recorded Not on file Plan of Treatment Health Maintenance Due Date Last Done Comments COVID-19 Vaccine (1) 1967 Fall Risk Screening 01/20/2020 Insurance Payer Benefit Plan Subscriber ID Effective Phone Address Typ e / Group Dates MEDICARE MEDICARE A/B [id number] 2020-Pres [address] edicare ent [phone] [place] [address] [facility] [id number] 2020-Pres [phone] [address] erc[address] [facility] ent [phone] [place] [address] (Work) Janeen Dias Personal/Family Self 1955 [address] (Home) [place] [phone] (Work) Janeen Dias Personal/Family Self 1955 [address] (Home) [place] [phone] (Work) Janeen Dias Personal/Family Self 1955 [phone] [address] (Home) [place] [phone] (Work) Janeen Dias Personal/Family Self 1955 [phone] (Home) [place] [phone] (Work) Care Teams Poultry Vaccinator Relationship Specialty Start Date End Date Milly Carvajal MD PCP - General 06/26/[address] [place] [phone]
--- OUTSIDE RECORDS SUMMARY | 2022-03-25 01:15 | XMS_ITS | Encounter Summary ---
:1955 Author Organization [facility] Address [address] [place] [address] Care Team Providers Name Role Phone Unavailable Primary Care Provider Unavailable Encounter Details Date Type Department Care Team Description 03/29/2002 Results Only [facility] - Braulio Bonilla MD conversion [address] [place] [address] Social History Tobacco Use Types Packs/Day Years Used Date Never Assessed Sex Assigned at Date Recorded Not on file documented as of this encounter Plan of Treatment Not on filedocumented as of this encounter Procedures Procedure Name Priority Date/Time Associated Diagnosis Comme nts CYTOPATHOLOGY Routine 03/29/2002 0:00 EDT Results for this procedure are i n the results section . documented in this encounter Results CYTOPATHOLOGY (03/29/2002 0:00 EDT) Pathology Report: CYTOPATHOLOGY REPORT [facility] Reports generated via electronic interface contain franki ginal data; however they are lacking the format of the original re port. Caution should be taken when reading/interpreting unfo rmatted reports. Name: ? JANEEN DIAS ? Accession #: ? [id number] : ? 1955 (Age: 47) ??F ?Collect Date: ? 03/03 Location: ? [facility] ? Receive Date : ? 04/02/2002 Provider: ?BRAULIO DAIGLE MD Copy to: ? Specimen/Source: ?ThinPrep Pap Test, Cervix/ Endocervix Last Menstrual Period: ? 09/06/01 Menstrual/ Status: ? Irregular ? SPECIMEN ADEQUACY ? Satisfactory for Evaluation - transformation zone component present GENERAL CATEGORIZATION ? Negative for Intraepithelial Lesion or Malignan cy ? Document reviewed and electronically signed by: ? HONEY Davidson(ASCP) ? Report Date: ??04/10/2002 11:10 End of Report Specimen Performing Organization Address City/State/ZIP Code Phon e Number [facility] [address] [place] [address] SERVICES [facility] [address] [place] [address] documented in this encounter Visit Diagnoses Not on filedocumented in this encounter
--- OUTSIDE RECORDS SUMMARY | 2022-03-25 01:15 | XMS_ITS | Encounter Summary ---
:1955 Author Organization [facility] Address [address] [place] [address] Care Team Providers Name Role Phone Unavailable Primary Care Provider Unavailable Encounter Details Date Type Department Care Team Description 10/28/2013 Results Only [facility]- Matias Olivas MD [phone] [facility] [facility] [place], [place] [phone] (Wo rk) Social History Tobacco Use Types Packs/Day Years Used Date Never Assessed Sex Assigned at Date Recorded Not on file documented as of this encounter Plan of Treatment Not on filedocumented as of this encounter Procedures Procedure Name Priority Date/Time Associated Diagnosis Comme nts PAP TEST- RESULT Routine 10/28/2013 0:00 EST Resu lts for this ONLY procedure are i n the results section. documented in this encounter Results PAP TEST- RESULT ONLY (10/28/2013 0:00 EST) Pathology Report: CYTOPATHOLOGY REPORT [facility] Reports generated via electronic interface contain franki ginal data; however they are lacking the format of the original re port. Caution should be taken when reading/interpreting unfo rmatted reports. Name: ? JANEEN DIAS ? Accession #: ? [id number] ? : ? 1955 (Age: 58) ??F ?Collect Da te: ? 10/28/2013 ? Location: ? [facility] ? Receive Date: ? 014 ? Provider: MATIAS MURRAY MD Copy to: ANIYAH CHACON MD ? Final Report SPECIMEN ADEQUACY ? Satisfactory for Evaluation - transformation zone component present GENERAL CATEGORIZATION ? Negative for Intraepithelial Lesion or Malignan cy ?? Menstrual/ Status: ??Post Menopausal Specimen/Source: ??Pap Test, Cervix/Endocervix, ThinPr ep Imaging System with manual evaluation Document reviewed and electronically signed by: ? Kamran Massey, QUYNH(ASCP) ? Report ??Date: 10/31/2013 13:10 HPV with Pap Test ? Date Ordered: ? 10/31/2013 ? Status: ?? Signed Out ?Date Complete: ? 11/04/2013 ? By: ??S ystem Interface ? Date Reported: ? 11/04/2013 ? Interpretation RESULT: Negative for HPV. No E6 or E7 mRNA is detected from HPV types 16,18,31,3 3,35, 39,45,51,52,56,58,59,66, and 68 by route agent media chaka amplification. Comments Document reviewed and electronically signed by: ? System Interface ? Report date: 11/04/2013 By the signature above, the attending physician certif ies that he/she has personally conducted a gross and/or microscopic examin ation of the described specimens and rendered or confirmed the above diagnosi s. End of Report Specimen Performing Organization Address City/State/ZIP Code Phon e Number [facility] [address] [place] [address] SERVICES [facility] [address] [place] [address] documented in this encounter Visit Diagnoses Not on filedocumented in this encounter
--- OUTSIDE RECORDS SUMMARY | 2022-03-25 01:15 | XMS_ITS | Encounter Summary ---
:1955 Author Organization [facility] Address [address] [place] [address] Care Team Providers Name Role Phone Milly Carvajal MD Primary Care Provider Encounter Details Date Type Department Care Team Description 01/22/2018 Results Only [facility] Milly Carvajal MD [phone] [place] [address] [address] [place] [address] (Wo rk) Social History Tobacco Use Types Packs/Day Years Used Date Never Assessed Sex Assigned at Date Recorded Not on file documented as of this encounter Plan of Treatment Not on filedocumented as of this encounter Procedures Procedure Name Priority Date/Time Associated Diagnosis Comme [facility] SURGICAL PATHOLOGY Routine 01/22/2018 22:36 Resul ts for this EDT procedure are i n the results section. documented in this encounter Results SURGICAL PATHOLOGY (01/22/2018 22:36 EDT) Pathology Report: SURGICAL PATHOLOGY REPORT [facility] Reports generated via electronic interface contain franki ginal data; LABORATORY however they are lacking the format of the original re port. SERVICES Caution should be taken when reading/interpreting unfo rmatted reports. Name: ? JANEEN DIAS ? Accession #: ? [id number] ? : ? 1955 (Age: [age]) ??F ? Collect Date: ? 01/22/2018 ? Location: ? [facility] ? Receive Date: ? 01/23/20 18 ? Provider: MILLY CARVAJAL MD Copy to: ? Final Pathologic Diagnosis: SKIN OF BACK, LEFT MID, PUNCH BIOPSY: - Predominantly intradermal compound nevus, traumatize d. ?? Document reviewed and electronically signed by: MATIAS CLAIRE MD Report ??Date: 01/23/2018 15:47 By the signature above, the attending physician certif ies that he/she has personally conducted a gross and/or microscopic examin ation of the described specimens and rendered or confirmed the above diagnosi s. Specimen(s) Received: 3.0 mm punch L mid back Clinical History: L 4.0 mm multicolored mole, back, increasing itchiness , scaling recently, ? basal cell CA Gross Description: ? Received in formalin labelled with proper patient identification (initials S, A) and mid back is a [facility] biopsy of pale price skin (0.3 cm in diameter and 0.2 cm in thickness). The cutaneous surf nancy has a slightly irregular brown and price macule that measures 0.3 x 0.2 cm Submitted intact in 1. BIANCA Barroso (ASCP) 01/23/2018 8:46 AM End of Report Specimen Performing Organization Address City/State/ZIP Code Phon e Number [facility] [address] [place] [address] SERVICES documented in this encounter Visit Diagnoses Not on filedocumented in this encounter Care Teams Experience Designer Relationship Specialty Start Date End Date Milly Carvajal MD PCP - General 06/26/15 [address] [place], [place] [phone] documented as of this encounter
--- OUTSIDE RECORDS SUMMARY | 2022-03-25 01:15 | XMS_ITS | Encounter Summary ---
:1955 Author Organization [facility] Address [address] [place] [address] Care Team Providers Name Role Phone Unavailable Primary Care Provider Unavailable Encounter Details Date Type Department Care Team Description 03/21/2001 Results Only [facility] - Braulio Bonilla MD conversion [address] [place] [address] Social History Tobacco Use Types Packs/Day Years Used Date Never Assessed Sex Assigned at Date Recorded Not on file documented as of this encounter Plan of Treatment Not on filedocumented as of this encounter Procedures Procedure Name Priority Date/Time Associated Diagnosis Comme nts CYTOPATHOLOGY Routine 03/21/2001 0:00 EDT Results for this procedure are i n the results section . documented in this encounter Results CYTOPATHOLOGY (03/21/2001 0:00 EDT) Pathology Report: CYTOPATHOLOGY REPORT [facility] Reports generated via electronic interface contain franki ginal data; however they are lacking the format of the original re port. Caution should be taken when reading/interpreting unfo rmatted reports. Name: ? JANEEN DIAS ? Accession #: ? [id number] : ? 1955 (Age: 46) ??F ?Collect Date: ? 03/03 Location: ? [facility] ? Receive Date : ? 03/26/2001 Provider: ?BRAULIO DAIGLE MD Copy to: ? Specimen/Source: ?ThinPrep Pap Test, Cervix/ Endocervix Last Menstrual Period: ? 07/02/00 Menstrual/ Status: ? Amenorrhea ? SPECIMEN ADEQUACY ? Satisfactory for evaluation. GENERAL CATEGORIZATION ? Benign Cellular Changes DESCRIPTIVE DIAGNOSIS ? Reactive cellular changes associa chaka with chronic follicular cervicitis present. ? Document reviewed and electronically signed by: ? Jane Taylor MD ? Report Date: ??03/30/2001 10:45 End of Report Specimen Performing Organization Address City/State/ZIP Code Phon e Number [facility] [address] [place] [address] SERVICES [facility] [address] [place] [address] documented in this encounter Visit Diagnoses Not on filedocumented in this encounter
--- OUTSIDE RECORDS SUMMARY | 2022-03-25 01:15 | XMS_ITS | Encounter Summary ---
:1955 Author Organization [facility] Address [address] [place] [address] Care Team Providers Name Role Phone Unavailable Primary Care Provider Unavailable Encounter Details Date Type Department Care Team Description 06/23/2015 Hospital Encounter [facility] [place] Unknown, Provider, [facility] [address] [facility] [phone] [place] [address] (Work) [phone] Social History Tobacco Use Types Packs/Day Years Used Date Never Assessed Sex Assigned at Date Recorded Not on file documented as of this encounter Discharge Disposition Disposition Code Departure Means Destination Home or Self [facility] documented in this encounter Plan of Treatment Not on filedocumented as of this encounter Visit Diagnoses Not on filedocumented in this encounter
--- OUTSIDE RECORDS SUMMARY | 2022-03-25 01:15 | XMS_ITS | Encounter Summary ---
:1955 Author Organization [facility] Address [address] [place] [address] Care Team Providers Name Role Phone Unavailable Primary Care Provider Unavailable Encounter Details Date Type Department Care Team Description 02/06/2007 Results Only [facility] - Milana Dong, Chr istopher, conversion DO [address] [facility] [address] [facility] [address] [place] [address] [place] [address] (Wo rk) Social History Tobacco Use Types Packs/Day Years Used Date Never Assessed Sex Assigned at Date Recorded Not on file documented as of this encounter Plan of Treatment Not on filedocumented as of this encounter Procedures Procedure Name Priority Date/Time Associated Diagnosis Comme nts SURGICAL PATHOLOGY Routine 02/06/2007 0:00 EDT Re sults for this procedure are i n the results section. documented in this encounter Results SURGICAL PATHOLOGY (02/06/2007 0:00 EDT) Pathology Report: SURGICAL PATHOLOGY REPORT [facility] Reports generated via electronic interface contain franki ginal data; LAB however they are lacking the format of the original re port. Caution should be taken when reading/interpreting unfo rmatted reports. Name: ? JANEEN DIAS ? Accession #: ? [id number] ? : ? 1955 (Age: 52) ??F ? Collect Date: ? 02/06/2007 ? Location: ? [facility] ? Receive Date: ? 007 ? Provider: LANE DONG DO Copy to: ANIYAH CHACON MD ? Final Pathologic Diagnosis: ? Gallbladder, cholecystectomy: 1. ?Chronic cholecystitis. 2. ? Cholesterolosis. 3. ? Cystic duct lymph node with no pathologic fea tures. Document reviewed and electronically signed by: JOHANN PAREDES MD Report ??Date: 02/09/2007 15:25 By the signature above, the attending physician certif ies that he/she has personally conducted a gross and/or microscopic examin ation of the described specimens and rendered or confirmed the above diagnosi s. Specimen(s) Received: ? Gallbladder Clinical History: ? Biliary dyskinesia Gross Description: ? Received in formalin labelled Stone and gallbladder is a 7.5 x 3.0 cm gallbladder with an attached 1.0 cm long segment of cy stic duct and a 0.5 cm cystic duct lymph node. ??Th e serosa price and smooth. ??The gallbladder is filled with 20 cc of viscid dark gr een bile. ??No stones are identified. ??The mucosa is velvety and dark green. ??Th e wall is price-white and measures 0.2 cm in thickness. Desktop Specialist sections are submitted in one cassette. ??(Yuko Barnett/cathy End of Report Specimen Performing Organization Address City/State/ZIP Code Phon e Number [facility] [address] [place] [address] [facility] [address] [place] [address] documented in this encounter Visit Diagnoses Not on filedocumented in this encounter
--- OUTSIDE RECORDS SUMMARY | 2022-03-25 01:15 | XMS_ITS | Encounter Summary ---
:1955 Author Organization [facility] Address [address] [place] [address] Care Team Providers Name Role Phone Unavailable Primary Care Provider Unavailable Encounter Details Date Type Department Care Team Description 04/15/2005 Results Only [facility] - Braulio Bonilla MD conversion [address] [place] [address] Social History Tobacco Use Types Packs/Day Years Used Date Never Assessed Sex Assigned at Date Recorded Not on file documented as of this encounter Plan of Treatment Not on filedocumented as of this encounter Procedures Procedure Name Priority Date/Time Associated Diagnosis Comme nts CYTOPATHOLOGY Routine 04/15/2005 0:00 EDT Results for this procedure are i n the results section . documented in this encounter Results CYTOPATHOLOGY (04/15/2005 0:00 EDT) Pathology Report: CYTOPATHOLOGY REPORT [facility] Reports generated via electronic interface contain franki ginal data; however they are lacking the format of the original re port. Caution should be taken when reading/interpreting unfo rmatted reports. Name: ? JANEEN DIAS ? Accession #: ? [id number] : ? 1955 (Age: 50) ??F ?Collect Date: ? 04/01 Location: ? [facility] ? Receive Date : ? 04/19/2005 Provider: ?BRAULIO DAIGLE MD Copy to: ? Specimen/Source: ? ThinPrep Pap Test, Cervix/Endocervix, processed on [employer] ThinPrep Imaging System, with manual evaluation Last Menstrual Period: ? 09/01 Hormonal/Contraceptive Status: ? Tubal ligation Other: ? HPVA - HPV testing requested if ASC-US on the current ThinPrep Pap test. ? SPECIMEN ADEQUACY ? Satisfactory for Evaluation - transformation zone component present GENERAL CATEGORIZATION ? Negative for Intraepithelial Lesion or Malignan cy ? Document reviewed and electronically signed by: ? Angelic Roth, SCT(ASCP) ? Report Date: ??04/27/2005 08:53 End of Report Specimen Performing Organization Address City/State/ZIP Code Phon e Number [facility] [address] [place] [address] [facility] [address] [place] [address] documented in this encounter Visit Diagnoses Not on filedocumented in this encounter
--- OUTSIDE RECORDS SUMMARY | 2022-03-25 01:16 | XMS_ITS | Encounter Summary ---
:1955 Author Organization [facility] [place] [address] Care Team Providers Name Role Phone Milly Carvajal MD Primary Care Provider Encounter Details Date Type Department Care Team Description 02/14/2014 Hospital Encounter Mammography at [facility], [address] [facility] Milly Carvajal MD [address] [place] [address] [place] [address] Social History Tobacco Use Types Packs/Day Years Used Date Never Assessed Sex Assigned at Date Recorded Not on file documented as of this encounter Medications at Time of Discharge Medication Sig Dispensed Refills Start Date End Date CIS Free Text Med - Calcium + D 0 01/01 CIS Free Text Med - ASA (Aspirin) 0 Lysine (L-LYSINE) 500 mg Tab 0 006 documented as of this encounter Plan of Treatment Not on filedocumented as of this encounter Procedures Procedure Name Priority Date/Time Associated Diagnosis Comme nts MAMMO SCREENING CAD Routine 02/14/2014 11:15 AM R esults for this BILATERAL EDT procedure are i n the results section. documented in this encounter Results Mammo digital bilateral Screening with CAD (02/14/2014 11:15 AM EDT) Anatomical Region Laterality Modality Breast Bilateral Mammography Specimen (Source) Anatomical Collection Method Collection Time Re ceived Time Location / / Volume Laterality 02/14/2014 11:15 AM EDT Narrative 02/17/2014 10:36 AM EDT Reason for Exam: Screening ?? Technique: Craniocaudal (CC) and Medio-l ateral Oblique (MLO) views of both breasts obtained with direct digital cap ture. ?? The exam was evaluated by CAD version 8. 3.17. ?? Findings: ?? This is a negative mammogram (ACR Catego ry 1). There is a stable fibroglandular pattern without significant change from prior studies. There is no mammographic evidence of can cer. The breasts are predominately fatty. ?? CONCLUSION: This is a NEGATIVE mammogram (ACR Catego ry 1). ?? Routine screening mammography is recomme nded with the frequency dependent upon the patients age and breast cancer risk factors. ?? A letter has been sent to this patient b y the breast imaging center. Procedure Note Maria Victoria Cole MD - 02/17/2014Formattin g of this note might be different from the original. Reason for Exam: Screening Technique: Craniocaudal (CC) and Medio-l ateral Oblique (MLO) views of both breasts obtained with direct digital cap ture. The exam was evaluated by CAD version 8. 3.17. Findings: This is a negative mammogram (ACR Catego ry 1). There is a stable fibroglandular pattern without significant change from prior studies. There is no mammographic evidence of can cer. The breasts are predominately fatty. CONCLUSION: This is a NEGATIVE mammogram (ACR Catego ry 1). Routine screening mammography is recomme nded with the frequency dependent upon the patients age and breast cancer risk factors. A letter has been sent to this patient b y the breast imaging center. Milly Carvajal MD IMG MAMMO ORDERABLES documented in this encounter Visit Diagnoses Not on filedocumented in this encounter Care Teams Emergency Service Worker Relationship Specialty Start Date End Date Milly Carvajal MD PCP - General 08/24/[address] [place] [address] documented as of this encounter
--- OUTSIDE RECORDS SUMMARY | 2022-03-25 01:16 | XMS_ITS | Encounter Summary ---
:1955 Author Organization [facility] [place] [address] Care Team Providers Name Role Phone Milly Carvajal MD Primary Care Provider Encounter Details Date Type Department Care Team Description 11/25/2010 Hospital Encounter [facility] Keeley Carvajal MD [address] [place] [address] (Wo rk) Social History Tobacco Use Types [...] on filedocumented in this encounter Care Teams Section Leader Relationship Specialty Start Date End Date Milly Carvajal MD PCP - General 08/24/[address] [place] [address] documented as of this encounter
--- OUTSIDE RECORDS SUMMARY | 2022-03-25 01:16 | XMS_ITS | Encounter Summary ---
:1955 Author Organization [place] [address] Care Team Providers Name Role Phone Milly Carvajal MD Primary Care Provider Encounter Details Date Type Department Care Team Description 08/26/2020 [place] [address] Social History Tobacco Use Types Packs/Day [...] Name Priority Date/Time Associated Diagnosis Comme nts COVID-19 PCR Routine 08/26/2020 10:13 AM Results for this EST procedure are i n the results section . documented in this encounter Results COVID-19 PCR (08/26/2020 10:13 AM EST) [facility] Method Time Signature SARS-CoV-2 Not Detected Not Detected [facility] Comment: This result should be interpreted in com bination with the clinical observations, patient history and epidem iological information. For testing of asymptomatic individuals, assay performa nce characteristics and clinical utility have not been evaluated. Testing for SARS-CoV-2 (Severe acute respiratory syndrome coronavirus 2, form erly known as 2019 novel coronavirus or 2019-nCoV) to aid in the diagnosis of CO VID-19 is performed using the Aptima SARS Co-V-2 Assay on the Stitch Fix System ([employer] as authorized by the FDA issued Emergency Use Authorization ( EUA). This assay is intended for In-vitro Diagnostic (IVD) use with nasop haryngeal swabs collected from individuals meeting the CDC criteria for testing. The assay is performed based on the instructions for use and addition al guidance provided by the FDA. Testing is performed in the Microbiology Laboratory within the Department of Pathology and Laboratory Medicine at [facility], certified under the Clinical Laboratory Improvement Amendments of 1988 (CLIA), 42 U.S.C. section 263a, to perform high- complexity tests. Assay performance has been verified according to clinical labo ratory regulatory requirements. Test results are provided above. A resul t of Not Detected indicates that the viral RNA target is not present but does not preclude SARS-CoV-2 infection. False negative results may occur if a sp ecimen is improperly collected, transported or handled; if amplification inhibitors are present; or if inadequate numbers of viral particles ar e present in the specimen. A result of Detected suggests a current or recent infection and the patient is presumed to be infected. Positive and negative pr edictive values for this test are highly dependent on disease prevalence. A result of Invalid indicates the inability to conclusively determine the presence or absence of SARS-CoV-2 RNA in the sample which can be due to a vari ety of factors. ??Collection of a new sample for repeat testing is recommended in the case of an invalid result. CDC COVID-19 criteria for testing on hum an specimens and clinical management guidance information are available at th e CDC Coronavirus Disease 2019 (COVID-19) webpage under Information fo r Healthcare Professionals (https://www.cdc.gov/coronavirus/2019-nc ov/hcp/index.html). SARS-Cov-2 RNA Source PHLEBOTOMIST SUPERVISOR/INSTRUCTOR Swab [facility] Specimen (Source) Anatomical Collection Method Collection Time Re ceived Time Location / / Volume Laterality Nasopharyngeal swab Other / Unknown 08/26/2020 10:13 1 10/27/2019 (specimen) AM EST 3:57 AM EST Resulting Agency Comment Spec In Lab Alexander Valdes MD MICROBIOLOGY - GENERAL [place] Performing Organization Address City/State/Z[place] [address] documented in this encounter Visit Diagnoses Not on filedocumented in this encounter Care Teams Retail And Promotions Coordinator Relationship Specialty Start Date End Date Milly Carvajal MD PCP - General 08/24/[address] [place] [address] documented as of this encounter
--- OUTSIDE RECORDS SUMMARY | 2022-03-25 01:16 | XMS_ITS | Encounter Summary ---
:1955 Author Organization [facility] [place] [address] Care Team Providers Name Role Phone Milly Carvajal MD Primary Care Provider Encounter Details Date Type Department Care Team Description 01/23/2012 Hospital Encounter Mammography at [facility], [address] [facility] Milly Carvajal MD [address] [place] [address] [place] [address] Social History Tobacco Use Types Packs/Day [...] Diagnosis Comme nts MAMMO SCREENING CAD Routine 01/23/2012 11:34 AM R esults for this BILATERAL EDT procedure are i n the results section. documented in this encounter Results MAMMO DIGITAL BILATERAL SCREENING WITH CAD (01/23/2012 11:34 AM EDT) Anatomical Region Laterality Modality Breast Bilateral Mammography Specimen (Source) Anatomical Collection Method Collection Time Re ceived Time Location / / Volume Laterality 01/23/2012 11:34 AM EDT Narrative 01/26/2012 9:03 AM EDT BILATERAL MAMMOGRAPHY ?? REASON FOR EXAM: Screening ?? TECHNIQUE: Cranio-caudal (CC) and mediol ateral oblique (MLO) views of both breasts obtained with direct digital cap ture. The exam was evaluated by CAD Version 8.3.17. ?? FINDINGS: This is a negative mammogram ( ACR Category 1). There is a stable fibroglandular pattern without significa nt change as compared to prior studies. There is no mammographic evidence of can cer. ? The breasts are predominantly fatty. ? CONCLUSION ?? This is a NEGATIVE mammogram (ACR Catego ry 1). Routine screening mammography is recommended with the frequency dependent on the patient's age and breast cancer risk factors. ?? A letter has been sent to this patient b y the [facility]. Procedure Note Eliana Tello MD - 01/01 BILATERAL MAMMOGRAPHY REASON FOR EXAM: Screening TECHNIQUE: Cranio-caudal (CC) and mediol ateral oblique (MLO) views of both breasts obtained with direct digital cap ture. The exam was evaluated by CAD Version 8.3.17. FINDINGS: This is a negative mammogram ( ACR Category 1). There is a stable fibroglandular pattern without significa nt change as compared to prior studies. There is no mammographic evidence of can cer. The breasts are predominantly fatty. CONCLUSION This is a NEGATIVE mammogram (ACR Catego ry 1). Routine screening mammography is recommended with the frequency dependent on the patient's age and breast cancer risk factors. A letter has been sent to this patient b y the [facility]. Milly Carvajal MD IMG MAMMO ORDERABLES documented in this encounter Visit Diagnoses Not on filedocumented in this encounter Care Teams Ornamental Brick Installer Relationship Specialty Start Date End Date Milly Carvajal MD PCP - General 08/24/[address] [place], [place] [address] [address] documented as of this encounter
--- OUTSIDE RECORDS SUMMARY | 2022-03-25 01:16 | XMS_ITS | Clinical Summary ---
:1955 Author Organization [facility] [place] [address] Care Team Providers Name Role Phone Milly Carvajal MD Primary Care Provider Allergies Active Allergy Reactions Severity Noted Date Comments Acetaminophen-Codeine CIS - Nausea/Vomiting Nickel CIS - Rash Medications Medication Sig Dispensed Refills Start Date End Date Status CIS Free Text Med - Calcium + D 0 01/26/20 06 Active CIS Free Text Med - ASA (Aspirin) 0 2005 Active Lysine (L-LYSINE) 500 mg Tab 0 01/25/2006 Active Social History Tobacco Use Types Packs/Day Years Used Date Never Assessed Sex Assigned at Date Recorded Not on file Plan of Treatment Health Maintenance Due Date Last Done Comments Covid-19 Vaccine (#1) 01/20/1960 Hepatitis C Screening 1973 Tdap adult 1974 Tetanus vaccine 1974 Breast Cancer Share Decision Needed 1995 Colonoscopy 01/20/2000 Zoster vaccine (1 of 2) 2005 Advance Directive 2010 Breast Cancer screening 02/15/2016 02/14/2014, 02/12/2013, 01/23/2012 Bone Density Scan 01/20/2020 Pneumoccocal Vaccine: 65+ (1 of 1 - 01/20/2020 PPSV23) Influenza (Flu) vaccine (1 of - 06/02/2021 Influenza standard series) Care Teams Printing Press Machine Operator Relationship Specialty Start Date End Date Milly Carvajal MD PCP - General 08/24/[address] [place], [place] [address]
--- OUTSIDE RECORDS SUMMARY | 2022-03-25 01:16 | XMS_ITS | Encounter Summary ---
:1955 Author Organization [facility] [place] [address] Care Team Providers Name Role Phone Milly Carvajal MD Primary Care Provider Encounter Details Date Type Department Care Team Description 11/25/2010 Office Visit [facility] [address] [place] [address] Social History Tobacco Use Types Packs/Day Years Used Date Never Assessed Sex Assigned at Date Recorded Not on file documented as of this encounter Plan of Treatment Not on filedocumented as of this encounter Visit Diagnoses Not on filedocumented in this encounter Care Teams Search And Rescue Officer Relationship Specialty Start Date End Date Milly Carvajal MD PCP - General 08/24/[address] [place] [address] documented as of this encounter
--- OUTSIDE RECORDS SUMMARY | 2022-03-25 01:16 | XMS_ITS | Encounter Summary ---
:1955 Author Organization [facility] [place] [address] Care Team Providers Name Role Phone Milly Carvajal MD Primary Care Provider Encounter Details Date Type Department Care Team Description 02/12/2013 Hospital Encounter Mammography at [facility], [address] Milly Carvajal MD [address] [place] [address] [place] [address] Social History Tobacco Use Types Packs/Day [...] Diagnosis Comme nts MAMMO SCREENING CAD Routine 02/12/2013 10:45 AM R esults for this BILATERAL EDT procedure are i n the results section. documented in this encounter Results Mammo digital bilateral Screening with CAD (02/12/2013 10:45 AM EDT) Anatomical Region Laterality Modality Breast Bilateral Mammography Specimen (Source) Anatomical Collection Method Collection Time Re ceived Time Location / / Volume Laterality 02/12/2013 10:45 AM EDT Narrative 02/13/2013 10:25 AM EDT Reason for Exam: Screening ?? Technique: Craniocaudal (CC) and Medio-l ateral Oblique (MLO) views of both breasts obtained with direct digital cap ture. The exam was evaluated by CAD version 8. 3.17. ?? Findings: ?? This is a negative mammogram (ACR Catego ry 1). ??There is a stable fibroglandular pattern without significa nt change from prior studies. There is no mammographic evidence of can cer. ??The breasts are predominately fatty. ?? CONCLUSION: This is a NEGATIVE mammogram (ACR Catego ry 1). ?? Routine screening mammography is recomme nded with the frequency dependent upon the patient's age and breast cancer risk factors. A letter has been sent to this patient b y the breast imaging center. Procedure Note Keeley Robles MD - 02/13/2013 Reason for Exam: Screening Technique: Craniocaudal (CC) and Medio-l ateral Oblique (MLO) views of both breasts obtained with direct digital cap ture. The exam was evaluated by CAD version 8. 3.17. Findings: This is a negative mammogram (ACR Catego ry 1). There is a stable fibroglandular pattern without significa nt change from prior studies. There is no mammographic evidence of can cer. The breasts are predominately fatty. CONCLUSION: This is a NEGATIVE mammogram (ACR Catego ry 1). Routine screening mammography is recomme nded with the frequency dependent upon the patient's age and breast cancer risk factors. A letter has been sent to this patient b y the breast imaging center. Milly Carvajal MD IMG MAMMO ORDERABLES documented in this encounter Visit Diagnoses Not on filedocumented in this encounter Care Teams Production Operations Inspector Relationship Specialty Start Date End Date Milly Carvajal MD PCP - General 08/24/10 [address] [place] [address] documented as of this encounter
[2022-03-25 13:04] LABS: ALT 23 U/L (14-59); AST 17 U/L (15-37); Alkaline Phosphatase 63 U/L (46-116); Anion Gap 9.2 mmol/L (3-11); BUN 14 mg/dL (7-18); Bilirubin, Total 0.9 mg/dL (0.2-1.0); CO2 26.8 mmol/L (21.0-32.0); CREATININE 0.7 mg/dL (0.55-1.02); Calcium 9.5 mg/dL (8.5-10.1); Calculated LDL 50 mg/dL (<100); Chloride 103 mmol/L (98-107); Cholesterol 124 mg/dL (<200); Glucose 123 mg/dL (74-106); HDL Cholesterol 58 mg/dL (40-60); Hemoglobin A1C 6.5 % (<5.7); Sodium 139 mmol/L (136-145); Total Protein 7.6 g/dL (6.4-8.2); Triglyceride 80 mg/dL (<150)
[2022-03-25 13:23] LABS: COMMENT (LAB VIEW ONLY) 200.13 mg/dL; Microalb ug/mg Crea 4.7 ug/mg Cr
== END 2022-03-25 01:13 | disposition home or self-care (01) ==
LOC: LOS 01:13
PROVIDERS: PCP Family Medicine; Visit Provider Family Medicine
DX: E78.5 Hyperlipidemia, unspecified (principal); E11.9 Type 2 diabetes mellitus without complications
CPT/HCPCS: 36415; 80053; 80061; 82043; 82570; 83036

== ENCOUNTER → 2022-04-25 02:22 | Outpatient (CLI) | payer MEDICARE, SELFPAY ==
--- NOTE | 2022-04-25 08:00 | DI.MAMMO_ITS ---
Exam(s) MAMMO SCREENING EXAM: MAMMO SCREENING CLINICAL HISTORY: screening, Z12.39. TECHNIQUE: Bilateral full field digital CC and MLO mammographic images were obtained with 3D tomosyn thesis and utilizing computer aided detection (CAD). COMPARISON: Prior mammograms dating back to 2012 were reviewed, the most recent being January 2021. FINDINGS: Asymmetric density in the left breast seen on the CC view located 6 cm in from the nipple is unchange d from 2018 and therefore benign. This is less evident on the MLO view. Microcalcification left breast is also stable. There are no new spiculated masses nor new malignant appearing microcalcification groups. There is no significant architectural distortion nor skin thickening-retraction. IMPRESSION: Stable findings. No obvious radiographic evidence of malignancy BI-RADS Category 2 - Benign Findings Breast Density - Category B - Scattered areas of fibroglandular density Breast density Category C or D implies that the patient has dense breast tissue. Dense breast tissue can make it harder to find cancer on a mammogram. Dense breast tissue is also associated with an incr eased risk of breast cancer. This information about the result of the mammogram report was provided to the patient to raise their awareness. Use this report when you speak with the patient about their risks for breast cancer, which includes their family history. At that time, you may recommend additional screening tests (Ultrasoun d or MRI) as these tests may add significant information. A negative radiographic report should not delay biopsy if a dominant or clinically suspicious mass is present. Up to ten percent of cancers are not identified on mammography. A negative report may reinforce clinical impression. Adenosis and dense breasts may obscure an underlying neoplasm. False positive reports average 6 to 10%. Patient will receive a letter notifying them of these results.
== END ==
PROVIDERS: PCP Family Medicine; Visit Provider Family Medicine
DX: Z12.31 Encounter for screening mammogram for malignant neoplasm of breast (principal); N60.82 Other benign mammary dysplasias of left breast
CPT/HCPCS: 77063; 77067

== ENCOUNTER 2022-10-21 01:14 | Outpatient (CLI) | payer MEDICARE, SELFPAY ==
[2022-10-21 12:40] LABS: Hemoglobin A1C 6.2 % (<5.7)
== END 2022-10-21 01:15 | disposition home or self-care (01) ==
LOC: LOS 01:15
PROVIDERS: PCP Family Medicine; Visit Provider Family Medicine
DX: E11.9 Type 2 diabetes mellitus without complications (principal)
CPT/HCPCS: 36415; 83036

== ENCOUNTER 2023-04-21 01:22 | Outpatient (CLI) | payer MEDICARE, SELFPAY ==
[2023-04-21 12:37] LABS: COMMENT (LAB VIEW ONLY) 110.31 mg/dL; Microalb ug/mg Crea 6.5 ug/mg Cr
[2023-04-21 12:38] LABS: ALT 26 U/L (14-59); AST 19 U/L (15-37); Alkaline Phosphatase 56 U/L (46-116); Anion Gap 7.5 mmol/L (3-11); BUN 14 mg/dL (7-18); Bilirubin, Total 0.9 mg/dL (0.2-1.0); CO2 28.5 mmol/L (21.0-32.0); CREATININE 0.7 mg/dL (0.55-1.02); Calcium 9.6 mg/dL (8.5-10.1); Chloride 105 mmol/L (98-107); Estimated GFR 94.15 (mL/min/1.73m2); Glucose 132 mg/dL (74-106); Potassium 3.9 mmol/L (3.5-5.1); Sodium 141 mmol/L (136-145); Total Protein 7.5 g/dL (6.4-8.2)
[2023-04-21 12:57] LABS: Hemoglobin A1C 6.6 % (<5.7)
== END 2023-04-21 01:23 | disposition home or self-care (01) ==
LOC: LOS 01:22
PROVIDERS: PCP Family Medicine; Visit Provider Family Medicine
DX: E11.9 Type 2 diabetes mellitus without complications (principal); E78.5 Hyperlipidemia, unspecified; I10 Essential (primary) hypertension
CPT/HCPCS: 36415; 80053; 82043; 82570; 83036

== ENCOUNTER 2023-11-02 04:21 | Outpatient (CLI) | payer MEDICARE, SELFPAY ==
[2023-11-02 12:37] LABS: ALT 27 U/L (14-59); AST 17 U/L (15-37); Alkaline Phosphatase 52 U/L (46-116); Anion Gap 10.6 mmol/L (3-11); BUN 17 mg/dL (7-18); CO2 25.4 mmol/L (21.0-32.0); Calcium 9.5 mg/dL (8.5-10.1); Calculated LDL 62 mg/dL (<100); Chloride 104 mmol/L (98-107); Cholesterol 134 mg/dL (<200); Estimated GFR 61.36 (mL/min/1.73m2); Glucose 142 mg/dL (74-106); HDL Cholesterol 57 mg/dL (40-60); Sodium 140 mmol/L (136-145); Total Protein 7.9 g/dL (6.4-8.2); Triglyceride 75 mg/dL (<150)
[2023-11-02 12:39] LABS: Hemoglobin A1C 6.6 % (<5.7)
== END 2023-11-02 04:22 | disposition home or self-care (01) ==
LOC: LOS 04:21
PROVIDERS: PCP Family Medicine; Visit Provider Family Medicine
DX: E78.5 Hyperlipidemia, unspecified (principal); I10 Essential (primary) hypertension; E11.9 Type 2 diabetes mellitus without complications
CPT/HCPCS: 36415; 80053; 80061; 83036

== ENCOUNTER → 2023-12-20 04:23 | Outpatient (CLI) | payer MEDICARE, SELFPAY ==
--- NOTE | 2023-12-20 07:45 | DI.CTLCSR_ITS ---
Exam(s) CT CHEST LUNG CANCER SCREEN EXAM: CT CHEST LUNG CANCER SCREEN CLINICAL HISTORY: Screening for lung cancer,CURRENT SMOKER, F17.210 TECHNIQUE: Imaging Protocol: Axial computed tomography images with coronal and sagittal reformatted images were created and reviewed. Low dose screening protocol. COMPARISON: No exams were available for comparison FINDINGS: Tracheobronchial tree: No bronchiectasis or mucus plugging.. Mediastinum and [place]: No dominant adenopathy or fluid collection. Pulmonary parenchyma: No consolidation or dominant measurable mass. Minimal emphysematous changes. Lung Nodules: None. Pleura: No effusion. No pneumothorax. Heart: The heart is not dilated. No coronary artery calcifications are seen. Aorta: Thoracic aorta non-dilated. Minimal aortic calcification. Upper abdomen: Unremarkable. Status post cholecystectomy. Bones: Unremarkable for age. Soft Tissues: Unremarkable. IMPRESSION: No suspicious pulmonary nodules. Lung RADS Cat 1 - Negative: No nodules and definitely benign nodules Lung-RADS 1.0 CATEGORIES: Category 0 - Prior chest CT exam(s) being located for comparison. Category 1 - Annual screening in 12 months. No nodules or definitely benign nodules. Category 2 - Annual screening in 12 months. Benign appearance. Nodules with low likelihood of becomin g active cancer. Category 3 - 6-month follow-up. Probably benign. Short-term follow-up suggested. Nodules with low lik elihood of becoming active cancer. Category 4A - 3-month follow-up and CT/PET if >8 mm in size. Suspicious finding. Findings which requi re additional testing. Category 4B - Findings which require additional testing and tissue sampling. Category 4X - Category 3 or 4 nodules with additional features or imaging findings that increases the suspicion of malignancy. Modifier S- Potentially clinically significant findings (non lung cancer) RADIATION DOSE DELIVERED: Total DLP DATA REPOSITORY: All CT scans at this facility are submitted to the National Radiology Data Registry (NRDR) Dose Index Registry (DIR) with the [employer] (ACR). RADIATION OPTIMIZATION: All CT scans at this facility use at least one of these dose optimization te chniques: automated exposure control; mA and/or kV adjustment per patient size (includes targeted exa ms where dose is matched to clinical indication); or iterative reconstruction.
--- NOTE | 2023-12-20 15:18 | DI.MAMMO_ITS ---
Exam(s) MAMMO SCREENING EXAM: MAMMO SCREENING CLINICAL HISTORY: screening,Z12.39 TECHNIQUE: Mammograms were interpreted according to the usual protocol including computer analysis w [employer] CAD system, tomosynthesis and C-view imaging. COMPARISON: 2013 through 2021 FINDINGS: The breasts are composed of mainly fatty density , Breast Density category A. No suspicious masses or suspicious microcalcifications are seen. No skin thickening or abnormal axillary lymph nodes are seen. There has been no significant change from prior exams. IMPRESSION: BI-RADS Category 1, Negative mammogram Yearly screening mammography is recommended. Breast Density - Category A, fatty density. A negative radiographic report should not delay biopsy if a dominant or clinically suspicious mass is present. Up to ten percent of cancers are not identified on mammography. A negative report may reinforce clinical impression. Adenosis and dense breasts may obscure an underlying neoplasm. False positive reports average 6 to 10%. Patient will receive a letter notifying them of these results.
== END ==
PROVIDERS: PCP Family Medicine; Visit Provider Family Medicine
DX: Z12.31 Encounter for screening mammogram for malignant neoplasm of breast (principal); F17.210 Nicotine dependence, cigarettes, uncomplicated
CPT/HCPCS: 71271; 77063; 77067

== ENCOUNTER 2024-07-25 09:40 | Outpatient (CLI) | payer MEDICARE, SELFPAY ==
[2024-07-25 13:34] LABS: ALT 30 U/L (14-59); AST 20 U/L (15-37); Albumin 3.9 g/dL (3.4-5.0); Alkaline Phosphatase 59 U/L (46-116); Anion Gap 10.4 mmol/L (3-11); BUN 11 mg/dL (7-18); Bilirubin, Total 0.83 mg/dL (0.2-1.0); CO2 25.6 mmol/L (21.0-32.0); CREATININE 0.8 mg/dL (0.55-1.02); Chloride 106 mmol/L (98-107); Estimated GFR 79.71 (mL/min/1.73m2); Glucose 234 mg/dL (74-106); Potassium 4.4 mmol/L (3.5-5.1); Sodium 142 mmol/L (136-145); Total Protein 7.6 g/dL (6.4-8.2); Vitamin D 25 Total 42.6 ng/mL (30-100)
[2024-07-25 13:44] LABS: Hemoglobin A1C 6.9 % (<5.7)
[2024-07-25 14:14] LABS: Microalb ug/mg Crea 4.9 ug/mg Cr
== END 2024-07-25 09:41 | disposition home or self-care (01) ==
PROVIDERS: PCP Family Medicine; Referring Provider Nurse Practitioner Family; Visit Provider Nurse Practitioner Family
DX: E11.9 Type 2 diabetes mellitus without complications (principal); E55.9 Vitamin D deficiency, unspecified; I10 Essential (primary) hypertension; M25.551 Pain in right hip; M25.561 Pain in right knee; M54.16 Radiculopathy, lumbar region; M54.30 Sciatica, unspecified side
CPT/HCPCS: 36415; 80053; 82306; 82043; 82570; 83036

== ENCOUNTER 2024-07-25 12:23 | Outpatient (CLI) | payer MEDICARE, SELFPAY ==
--- NOTE | 2024-07-25 14:50 | DI.RAD_ITS ---
Exam(s) XR HIP RT COMPLETE AP PELVIS EXAM: XR HIP RT COMPLETE AP PELVIS CLINICAL HISTORY: M25.551 Rt hip increased pain, atraumatic. TECHNIQUE: 2D digital imaging was performed of the right hip. Three images were obtained. AP pelvis and lateral right hip views were obtained. COMPARISON: CR LUMBAR SPINE COMPLETE from 07/25/2017 CR XR DEXA BONE DENSITY W/WO SU from 10/22/2021 FINDINGS: BONES: No acute fracture is present. No bony destructive lesion is seen. JOINTS: No dislocation present. There are degenerative changes seen in the lower lumbar spine. The s acroiliac joints and symphysis pubis are intact. SOFT TISSUE: Normal. IMPRESSION: Unremarkable radiographs of the right hip. DATA REPOSITORY: RADIATION DOSE DELIVERED:
--- NOTE | 2024-07-25 14:54 | DI.RAD_ITS ---
Exam(s) XR KNEE RT 3V AP,LAT,ARASH EXAM: XR KNEE RT 3V AP,LAT,ARASH CLINICAL HISTORY: M25.561 Rt knee increased pain, atraumatic. TECHNIQUE: 2D digital imaging was performed of the right knee. Three views obtained. AP, lateral an d PA tunnel views were obtained. COMPARISON: No exams were available for comparison FINDINGS: BONES: No acute fracture is present. No bony destructive lesion is seen. JOINTS: The knee is normally aligned. There is a small joint effusion. SOFT TISSUE: There is soft tissue calcification within and adjacent to the lateral femoral tibial jojo nt which may represent chondrocalcinosis. There is also calcifications seen in the medial femoral ti bial joint consistent with chondrocalcinosis. IMPRESSION: Findings suggestive chondrocalcinosis in the right knee. This can be seen with CPPD arthropathy. MR I may be considered for further evaluation. DATA REPOSITORY: RADIATION DOSE DELIVERED:
== END 2024-07-25 12:43 ==
LOC: DI 12:24
PROVIDERS: PCP Family Medicine; Visit Provider Nurse Practitioner Family
DX: M25.551 Pain in right hip (principal); M25.561 Pain in right knee
CPT/HCPCS: 36415; 73562; 80053; 82306; 73502; 82043; 82570; 83036

== ENCOUNTER 2024-10-15 12:08 | Outpatient (CLI) | payer MEDICARE, SELFPAY ==
--- NOTE | 2024-10-15 09:45 | DI.US_ITS ---
Exam(s) US LOWER EXTREMITY VENOUS RT EXAM: US LOWER EXTREMITY VENOUS RT CLINICAL HISTORY: evaluate DVT,rt calf pain,m79.661. TECHNIQUE: Lower extremity venous ultrasound performed using grayscale, color-flow, and spectral Do ppler analysis. COMPARISON: No exams were available for comparison FINDINGS: The common femoral, femoral and popliteal veins demonstrate normal compressibility, augmentation, and color Doppler. The posterior tibial and peroneal veins are patent. No saphenous vein thrombosis or other superficial venous thrombosis is seen. Popliteal fossa collection measuring 5.3 x 1.1 x 2.9 cm which could represent a hematoma versus Sims 's cyst with debris. IMPRESSION: Popliteal fossa cyst versus hematoma. No evidence of DVT. DATA REPOSITORY:
== END 2024-10-15 12:28 ==
PROVIDERS: PCP Family Medicine; Visit Provider Nurse Practitioner Family
DX: M79.661 Pain in right lower leg (principal)
CPT/HCPCS: 93971

== ENCOUNTER 2024-11-05 00:18 | Outpatient (CLI) | payer MEDICARE, SELFPAY ==
--- NOTE | 2024-11-05 06:15 | DI.MRI_ITS ---
Exam(s) MR LOWER JOINT RT WO EXAM: MR LOWER JOINT RT WO CLINICAL HISTORY: RT KNEE PAIN,M25.561. TECHNIQUE: Multiplanar multisequence MRI was performed. COMPARISON: CR XR KNEE RT 3V AP,LAT,ARASH from 07/25/2024 FINDINGS: BONES: There is no fracture or contusion pattern. Degenerative signal changes in the anterior aspect of the lateral femoral condyle. JOINTS: A moderate-sized joint effusion is present. Articular cartilage: Patellofemoral joint: Articular thinning of the cartilage of the lateral patellar facet. Cartilage thinning extending down to and bone involving the anterior medial femoral condyle Medial femoral tibial joint: Articular cartilage is unremarkable. Lateral femoral tibial joint: Articular cartilage is unremarkable. LIGAMENTS/TENDONS: Anterior Cruciate: Unremarkable. Posterior Cruciate: Unremarkable. Medial Collateral:Unremarkable. Lateral Collateral ligament complex: Unremarkable. Extensor mechanism: Unremarkable. Medial retinaculum: Unremarkable. Lateral retinaculum: Unremarkable. Popliteus: Unremarkable. MENISCI: Difficult to evaluate due to chondrocalcinosis. The medial meniscus the shows a question of a radial tear in the posterior horn. The lateral meniscus shows a diminutive anterior horn. MUSCLES: Unremarkable. SOFT TISSUES: Mild anterior edema. Small Sims's cyst. Mild loculated fluid collection noted adjace nt to the posterior capsule. 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 Chondromalacia also seen at the later al patellar facet. Radial tear in the posterior horn of the medial meniscus. Sims's cyst. Chondrocalcinosis, better appreciated on plain films. DATA REPOSITORY:
== END 2024-11-05 00:38 ==
LOC: DI 00:18
PROVIDERS: PCP Family Medicine; Visit Provider Nurse Practitioner Family
DX: M23.221 Derangement of posterior horn of medial meniscus due to old tear or injury, right knee (principal)
CPT/HCPCS: 73721

== ENCOUNTER → 2024-11-07 14:16 | Outpatient (BNVA) | payer MEDICARE, SELFPAY | PROVIDERS: PCP Family Medicine; Referring Provider Family Medicine | DX: M11.261 Other chondrocalcinosis, right knee (principal) | CPT/HCPCS: 20610; 99203; J1010 ==

== ENCOUNTER 2024-12-06 01:02 | Outpatient (CLI) | payer MEDICARE, SELFPAY ==
[2024-12-06] MEDS: Levalbuterol HFA 15 GM INH 4 PUFF IH (09:29)
[2024-12-06] MEDS: Inhaler, Assist Device 1 EACH MC (09:29)
--- NOTE | 2024-12-10 14:56 | W.PFT ---
Date of service: 12/06/24 Time of Service: 08:00 Pulmonary Function Test Result Indications: Chronic cough Interpretation Spirometry: There is no airflow limitation. No significant bronchodilator response. Lung Volumes: Normal lung volumes Diffusion Capacity: Normal diffusion Airway Pressure: Normal airways resistance Impression Normal pulmonary function testing Clinical Correlation therefore is recommended.
== END 2024-12-06 01:03 | disposition home or self-care (01) ==
LOC: RT 01:02
PROVIDERS: PCP Family Medicine; Visit Provider Student in an Organized Health Care Education/Training Program
DX: F17.210 Nicotine dependence, cigarettes, uncomplicated (principal); R05.3 Chronic cough
CPT/HCPCS: 94060; 94726; 94729

== ENCOUNTER 2024-12-25 01:15 | Outpatient (CLI) | payer MEDICARE, SELFPAY ==
--- NOTE | 2024-12-25 07:45 | DI.MAMMO_ITS ---
Exam(s) MAMMO SCREENING EXAM: MAMMO SCREENING CLINICAL HISTORY: screening,Z12.39 TECHNIQUE: Mammograms were interpreted according to the usual protocol including computer analysis w [employer] CAD system, tomosynthesis and C-view imaging. COMPARISON: 2014 through 2023 FINDINGS: The breasts are composed of scattered fibroglandular densities, Breast Density category B. No suspicious masses or suspicious microcalcifications are seen. No skin thickening or abnormal axillary lymph nodes are seen. There has been no significant change from prior exams. IMPRESSION: BI-RADS Category 1, Negative mammogram Yearly screening mammography is recommended. Breast Density - Category B, scattered fibroglandular densities. A negative radiographic report should not delay biopsy if a dominant or clinically suspicious mass is present. Up to ten percent of cancers are not identified on mammography. A negative report may reinforce clinical impression. Adenosis and dense breasts may obscure an underlying neoplasm. False positive reports average 6 to 10%. Patient will receive a letter notifying them of these results.
--- NOTE | 2024-12-25 07:45 | DI.CTLCSR_ITS ---
Exam(s) CT CHEST LUNG CANCER SCREEN EXAM: CT CHEST LUNG CANCER SCREEN CLINICAL HISTORY: Screening for lung cancer,CIGARETTE SMOKER, F17.210. TECHNIQUE: Imaging Protocol: Low Dose Technique CONTRAST MATERIAL: None COMPARISON: CT CT CHEST LUNG CANCER SCREEN from 12/20/2023 FINDINGS: CHEST: LUNGS: There is a tiny 1-2 mm benign granuloma in the anterior basal segment of the left lower lobe. There are no ominous pulmonary nodules. There are no confluent infiltrates. There is a thin walled bulla in the inferior lingular segment of the left lung measuring 3 by 3 cm, unchanged. MEDIASTINUM: There is no obvious hilar nor mediastinal adenopathy. CARDIAC: Heart size is normal. There is no pericardial effusion.Caliber of the thoracic aorta is wit hin normal limits. OTHER: Gallbladder surgically absent. No adrenal masses. OSSEOUS: No significant osseous lesions.Schmorl's node invagination in the superior endplate of T11 v ertebral body is unchanged. No new fractures.. IMPRESSION: 1. No significant pulmonary nodules 2. No infiltrates nor pleural effusions nor intrathoracic adenopathy. 3. Lung RADS Cat 1 - Negative: No nodules and definitely benign nodules Lung-RADS 1.0 CATEGORIES: Category 0 - Prior chest CT exam(s) being located for comparison. Category 1 - Annual screening in 12 months. No nodules or definitely benign nodules. Category 2 - Annual screening in 12 months. Benign appearance. Nodules with low likelihood of becomin g active cancer. Category 3 - 6-month follow-up. Probably benign. Short-term follow-up suggested. Nodules with low lik elihood of becoming active cancer. Category 4A - 3-month follow-up and CT/PET if >8 mm in size. Suspicious finding. Findings which requi re additional testing. Category 4B - Findings which require additional testing and tissue sampling. Category 4X - Category 3 or 4 nodules with additional features or imaging findings that increases the suspicion of malignancy. Modifier S- Potentially clinically significant findings (non lung cancer) RADIATION DOSE DELIVERED: 66.56mGy.cm Total DLP DATA REPOSITORY: All CT scans at this facility are submitted to the National Radiology Data Registry (NRDR) Dose Index Registry (DIR) with the [employer] (ACR). RADIATION OPTIMIZATION: All CT scans at this facility use at least one of these dose optimization te chniques: automated exposure control; mA and/or kV adjustment per patient size (includes targeted exa ms where dose is matched to clinical indication); or iterative reconstruction.
== END 2024-12-25 01:35 ==
LOC: DI 01:15
PROVIDERS: PCP Family Medicine; Visit Provider Family Medicine
DX: F17.210 Nicotine dependence, cigarettes, uncomplicated (principal); Z12.31 Encounter for screening mammogram for malignant neoplasm of breast; Z12.2 Encounter for screening for malignant neoplasm of respiratory organs
CPT/HCPCS: 71271; 77063; 77067

== ENCOUNTER 2025-03-24 11:02 | Outpatient (CLI) | payer MEDICARE, SELFPAY ==
[2025-03-24 12:26] LABS: Anion Gap 11.2 mmol/L (3-11); BUN 22 mg/dL (7-18); CO2 24.8 mmol/L (21.0-32.0); CREATININE 0.8 mg/dL (0.55-1.02); Calcium 9.7 mg/dL (8.5-10.1); Chloride 104 mmol/L (98-107); Estimated GFR 79.22 (mL/min/1.73m2); Glucose 225 mg/dL (74-106); Potassium 4.4 mmol/L (3.5-5.1); Sodium 140 mmol/L (136-145); Uric Acid 5.1 mg/dL (2.6-6.0)
[2025-03-24 12:30] LABS: Hemoglobin A1C 6.5 % (<5.7)
[2025-03-25 09:51] LABS: Hepatitis C Ab w Rflx HCV PCR Negative (Negative)
== END 2025-03-24 11:03 | disposition home or self-care (01) ==
LOC: LOS 11:03
PROVIDERS: Nurse Practitioner Family; PCP Family Medicine; Visit Provider Family Medicine
DX: M25.571 Pain in right ankle and joints of right foot (principal); Z11.59 Encounter for screening for other viral diseases; E11.9 Type 2 diabetes mellitus without complications
CPT/HCPCS: 36415; 80048; 86803; 83036; 84550

== ENCOUNTER 2025-05-30 17:13 | Outpatient (REF) | payer MEDICARE, SELFPAY ==
[2025-05-30 18:05] LABS: Glucose Negative (Negative)
[2025-05-30 18:13] LABS: RBC >50 HPF (0-2); WBC >50 HPF (0-5)
== END 2025-05-30 17:14 | disposition home or self-care (01) ==
LOC: LBN 17:13
PROVIDERS: PCP Family Medicine; Visit Provider Family Medicine
DX: R30.0 Dysuria (principal)
CPT/HCPCS: 81003; 81015

== ENCOUNTER 2025-05-31 11:55 | Outpatient (REF) | payer MEDICARE, SELFPAY ==
[2025-05-31 12:39] LABS: Glucose Negative (Negative)
== END 2025-05-31 11:56 | disposition home or self-care (01) ==
LOC: LBN 11:55
PROVIDERS: PCP Family Medicine; Visit Provider Family Medicine
DX: R30.0 Dysuria (principal)
CPT/HCPCS: 81003